=== PATIENT | male | born 1930 | race Caucasian/White ===

== ENCOUNTER 2019-10-10 09:29 | Inpatient (IN) ==
[2019-10-10] MEDS ORDERED: NS 1,000 ML IV ONE (10:39)
[2019-10-10] MEDS ORDERED: ASPIRIN PO ONE (10:39)
--- NOTE | 2019-10-10 10:49 | EKG Report ---
Test Performed on : 10/10/2019 09:38:48 AM Test Reason : Stroke like symptoms Blood Pressure : / mmHG Vent. Rate : 065 BPM Atrial Rate : 065 BPM P-R Int : 168 ms QRS Dur : 136 ms QT Int : 430 ms P-R-T Axes : 040 -03 048 degrees QTc Int : 447 ms Normal sinus rhythm. Right bundle branch block Abnormal ECG When compared with ECG of 23-JUL-2014 14:44, No significant change was found Unconfirmed Result
[2019-10-10 11:07] LABS: BASO# 0.04 X1000 (0.0-0.2); BASO% 0.6 % (0.0-0.8); EOS# 0.26 X1000 (0.0-0.7); EOS% 3.8 % (0.0-10.0); HEMATOCRIT 39.8 % (42.0-52.0); HEMOGLOBIN 13.3 g/dL (14.0-18.0); LYMPH# 1.71 X1000 (1.2-3.4); LYMPH% 25.1 % (20.5-51.1); MCH 30.2 PG (27-31); MCHC 33.4 g/dL (33-37); MCV 90.5 FL (81-99); MONO% 14.7 % (1.7-9.3); MPV 9.6 FL (7.4-10.4); NEUT# 3.79 X1000 (1.4-6.5); NEUT% 55.8 % (42.2-75.2); PLT 206 X1000 (130-400); RDW 12.5 % (11.5-14.5)
[2019-10-10 11:14] LABS: INR 0.99; PROTIME 13.2 Seconds (11.0-16.0); PTT 27.1 Seconds (22.3-41.8)
[2019-10-10 11:21] LABS: URINE SOURCE CLEAN CATCH
[2019-10-10 11:27] LABS: BILIRUBIN URINE NEGATIVE (NEGATIVE); BLOOD URINE NEGATIVE (NEGATIVE); COLOR YELLOW; GLUCOSE URINE NEGATIVE (NEGATIVE); KETONE URINE NEGATIVE (NEGATIVE); LEUKOCYTES URINE NEGATIVE (NEGATIVE); NITRITE URINE NEGATIVE (NEGATIVE); PROTEIN URINE NEGATIVE (NEGATIVE); SP GRAVITY URINE 1.017; TURBIDITY URINE CLEAR (CLEAR); UROBILINOGEN URINE NORMAL (NORMAL)
[2019-10-10 11:33] LABS: AGAP 14; ALB/GLOB RATIO 1.5; ALBUMIN 3.9 g/dL (3.5-5.0); ALKALINE PHOSPHATASE 78 U/L (32-122); BUN 20 mg/dL (8-22); CALCIUM 9.3 mg/dL (8.8-10.2); CHLORIDE 97 mmol/L (98-107); COSMO 269; CREATININE 0.9 mg/dL (0.7-1.2); ESTIMATED GFR > 60; GLUCOSE 92 mg/dL (70-104); GOT 21 U/L (10-34); GPT 20 U/L (10-44); POTASSIUM 4.3 mmol/L (3.5-5.1); SODIUM 133 mmol/L (136-145); TCO2 22 mmol/L (25-35); TOTAL BILIRUBIN 0.51 mg/dL (0.20-1.00); TOTAL PROTEIN 6.5 g/dL (6.3-8.3)
--- NOTE | 2019-10-10 11:42 | Diag Imaging Result Doc PS360 ---
EXAM: CT HEAD W/O CONTRAST 10/10/2019 HISTORY: stroke like symptoms TECHNIQUE: This exam was performed using automated exposure control, adjustment of mA or kV according to patient size, and/or use of iterative reconstruction technique. COMMENT: There are calcifications in the vertebral and internal carotid arteries. There are patchy lucencies in the white matter of both hemispheres particularly in the areas of the atria of the lateral ventricles. There are also lacunar lucencies in the external capsule on the right. There is mild to moderate generalized cerebral atrophy. These findings were all present at the time the previous study of 09/01/2018. IMPRESSION: Extensive chronic ischemic changes and cerebral atrophy. In view of the chronic changes, further evaluation with MRI may be desirable. Electronically signed by Ric Martinez 10/10/2019 11:39 AM
[2019-10-10 11:52] LABS: UR AMPHETAMINES QUAL NONE DETECTED (NONE DETECT); UR BARBITUATES QUAL NONE DETECTED (NONE DETECT); UR BENZODIAZEPIN QUAL NONE DETECTED (NONE DETECT); UR CANNABINOIDS QUAL NONE DETECTED (NONE DETECT); UR COCAINE QUAL NONE DETECTED (NONE DETECT); UR METHADONE QUAL NONE DETECTED (NONE DETECT); UR OPIATES QUAL NONE DETECTED (NONE DETECT); UR OXYCODONE QUAL NONE DETECTED (NONE DETECT); UR PCP QUAL NONE DETECTED (NONE DETECT)
[2019-10-10 11:55] LABS: UR EPITHELIAL CELLS <10 /HPF (<10); URINE BACTERIA NEGATIVE /HPF; URINE RBC <10 /HPF (<10); URINE WBC <10 /HPF (<10)
--- NOTE | 2019-10-10 11:57 | Diag Imaging Result Doc PS360 ---
EXAM: CHEST-PORTABLE 10/10/2019 HISTORY: stroke like symptoms TECHNIQUE: AP portable at 1100 COMMENT: There is atelectasis in the left lower lobe which is worse in appearance than on 12/24/2014. IMPRESSION: Left lower lobe atelectasis. Electronically signed by Ric Martinez 10/10/2019 11:55 AM
[2019-10-10 12:04] LABS: URINE CRYSTALS NONE SEEN
[2019-10-10 12:30] LABS: SED RATE 13 mm/hr (0-15)
--- NOTE | 2019-10-10 13:14 | PROVIDER DOCUMENTATION ---
This chart was entered by Tracy Harrington Scribe, acting as scribe for Hang Clemente MD. HPI-Neurological Disorder - General Chief Complaint: Numbness Stated Complaint: SOB,LT ARM,HAND NUMBNESS Time Seen by Provider: 10/10/19 10:29 Source: patient Allergies/Adverse Reactions: Patient Allergies Allergy/AdvReac Type Severity Reaction Status Date / Time green beans Allergy SWELLING Uncoded 10/10/19 10:16 Home Medications: Home Medication List Medication Instructions Recorded Confirmed Last Taken Type Rosuvastatin Calcium [Crestor] 5 mg PO DIRECTED 11/09/13 10/10/19 09/18/15 21:00 History Aspirin EC 81 mg PO DAILY 07/24/14 10/10/19 10/10/19 History Chlorthalidone 1 tab PO DAILY 10/10/19 10/10/19 10/10/19 History Losartan [Cozaar] 100 mg PO DAILY 10/10/19 10/10/19 10/10/19 History - History of Present Illness-Neuro Nature of Presenting Problem: Patient is a 89 year old male who presents with weakness to left arm and hand. States weakness started this morning at 0730. Reports weakness has improved. History of TIA Severity: reports: mild Onset/Duration: reports: this morning (0730) Timing: reports: improving Context: reports: other (weakness) Character of Altered Mental Status: reports: N/A Character of Deficits: reports: new weakness New weakness or altered sensation location:: reports: LUE Cognitive Baseline: alert, oriented x3 Gait Baseline: walks without assistance Associated Symptoms: reports: denies symptoms Similar Symptoms Previously?: No Recently seen or treated by another doctor?: No Review of Systems - Adult - REVIEW OF SYSTEMS - ADULT Constitutional: reports: no symptoms reported Eyes: reports: no symptoms reported Ears, Nose, Mouth & Throat: reports: no symptoms reported Cardiovascular: reports: no symptoms reported Respiratory: reports: no symptoms reported Gastrointestinal: reports: no symptoms reported Genitourinary: reports: no symptoms reported Musculoskeletal: reports: see HPI. denies: back pain, neck pain Integumentary: reports: no symptoms reported Neurological: reports: see HPI, other (LUE weakness). denies: numbness, paresthesia Psychiatric: reports: no symptoms reported Endocrine: reports: no symptoms reported Hematologic/Lymphatic: reports: no symptoms reported Allergic/Immunologic: reports: no symptoms reported All Other Systems: Reviewed and Negative Past History - Adult - PAST MEDICAL HISTORY-ADULT Review of Records: reports: Old Records Reviewed, Nursing Assessment Review, Medications Reviewed, Social history reviewed & non-contributory. Major Childhood Illnesses: reports: denies history Cardiovascular: reports: CAD, HTN, hyperlipidemia Respiratory: reports: denies history Gastrointestinal: reports: denies history Obstetrical/Gynecological: reports: denies history Genitourinary: reports: denies history Musculoskeletal: reports: denies history Neurological: reports: TIA Endocrine/Immune: reports: denies history Other Conditions: reports: other cancer (skin) - PRIOR SURGERIES/PROCEDURES Surgical/Procedure History: reports: hernia repair, joint replacement - IMMUNIZATION STATUS Childhood Immunizations: See Nurse Assessment Flu Vaccine: See Nurse Assessment - FAMILY HISTORY Family History: reviewed, not pertinent - SOCIAL HISTORY Smoking: cigarettes (former) Substance Use: denies Living Situation: family Physical Exam- Neurological - Physical Exam-Neuro Initial Vital Signs Reviewed: Yes General Appearance: alert, no apparent distress. negative: lethargic Eye Exam: bilateral eye: normal inspection HENMT: normocephalic/atraumatic, moist mucous membranes. negative: angioedema Head Injury: no evidence of injury. negative: ecchymosis, lacerations Respiratory: chest non-tender, lungs clear, normal breath sounds. negative: crackles, stridor Cardiovascular: normal peripheral pulses, regular rate, rhythm. negative: tachycardia Abdominal Exam: normal bowel sounds, non tender, soft. negative: rigid 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 range of motion, non-tender, other (external rotation to right foot (chronic). 2/4 reflexes to upper extremities. 1/4 reflexes to lower extremities.). 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 negative: abnormal speech, facial droop Motor/Sensory: no pronator drift, weak motor strength LUE. negative: sensory deficit Neurologic: delicate fabrics presser II-XII nml as tested, motor weakness (LUE). negative: aphasia, facial droop Integumentary: normal color, normal turgor, warm/dry. negative: diaphoresis, pallor Psych/Mental Status: normal mood/affect, oriented x 3. negative: anxious Progress - PLAN OF CARE/RESULTS Progress/Plan/Lab Results: Vital Signs - 8 hr 10/10/19 09:34 Temperature 97.8 F Pulse Rate 63 Respiratory Rate 22 Blood Pressure 154/80 O2 Sat by Pulse Oximetry 98 Laboratory Results - last 24 hr 10/10/19 10/10/19 10/10/19 10:53 10:53 10:53 WBC 6.80 RBC 4.40 L Hgb 13.3 L Hct 39.8 L MCV 90.5 MCH 30.2 MCHC 33.4 RDW Std Deviation 12.5 Plt Count 206 MPV 9.6 Immature Gran % (Auto) 0.0 Neut % (Auto) 55.8 Lymph % (Auto) 25.1 [place] % (Auto) 14.7 H Eos % (Auto) 3.8 Baso % (Auto) 0.6 Immature Gran # (Auto) 0.00 Neut # (Auto) 3.79 Lymph # (Auto) 1.71 [place] # (Auto) 1.00 H Eos # (Auto) 0.26 Baso # (Auto) 0.04 ESR 13 PT 13.2 INR 0.99 PTT (Actin FS) 27.1 Sodium 133 L Potassium 4.3 Chloride 97 L Carbon Dioxide 22 L Anion Gap 14 BUN 20 Creatinine 0.9 Estimated GFR/1.73 m2 > 60 BUN/Creatinine Ratio 22 Glucose 92 Calculated Osmolality 269 Calcium 9.3 Total Bilirubin 0.51 AST 21 ALT 20 Alkaline Phosphatase 78 Troponin T Qvx-V-Pfmrcmpucwe Pept Total Protein 6.5 Albumin 3.9 Globulin 2.6 Albumin/Globulin Ratio 1.5 Urine Source Urine Color Urine Turbidity Urine pH Ur Specific Richardson Urine Protein Ur Glucose (Stick) Ur Ketones (Stick) Urine Blood Urine Nitrite Urine Bilirubin Urobilinogen Dipstick Urine Leukocytes Urine WBC (Auto) Urine RBC (Auto) U Epithel Cells (Auto) Urine Bacteria (Auto) Urine Crystals Small Round Cells Urine Casts Urine Yeast-like Cells Urine Opiates Screen Ur Oxycodone Screen Ur Methadone, Qual Ur Barbiturates Screen Ur Phencyclidine Scrn Ur Amphetamines Screen U Benzodiazepines Scrn Urine Cocaine Screen U Cannabinoids Screen 10/10/19 10/10/19 10/10/19 10:53 10:53 11:00 WBC RBC Hgb Hct MCV MCH MCHC RDW Std Deviation Plt Count MPV Immature Gran % (Auto) Neut % (Auto) Lymph % (Auto) [place] % (Auto) Eos % (Auto) Baso % (Auto) Immature Gran # (Auto) Neut # (Auto) Lymph # (Auto) [place] # (Auto) Eos # (Auto) Baso # (Auto) ESR PT INR PTT (Actin FS) Sodium Potassium Chloride Carbon Dioxide Anion Gap BUN Creatinine Estimated GFR/1.73 m2 BUN/Creatinine Ratio Glucose Calculated Osmolality Calcium Total Bilirubin AST ALT Alkaline Phosphatase Troponin T < 0.010 Sxc-C-Vioncwvvvvv Pept 167 Total Protein Albumin Globulin Albumin/Globulin Ratio Urine Source CLEAN CATCH Urine Color YELLOW Urine Turbidity CLEAR Urine pH 7.0 Ur Specific Richardson 1.017 Urine Protein NEGATIVE Ur Glucose (Stick) NEGATIVE Ur Ketones (Stick) NEGATIVE Urine Blood NEGATIVE Urine Nitrite NEGATIVE Urine Bilirubin NEGATIVE Urobilinogen Dipstick NORMAL Urine Leukocytes NEGATIVE Urine WBC (Auto) <10 Urine RBC (Auto) <10 U Epithel Cells (Auto) <10 Urine Bacteria (Auto) NEGATIVE Urine Crystals NONE SEEN Small Round Cells Not Reportable Urine Casts Not Reportable Urine Yeast-like Cells Not Reportable Urine Opiates Screen Ur Oxycodone Screen Ur Methadone, Qual Ur Barbiturates Screen Ur Phencyclidine Scrn Ur Amphetamines Screen U Benzodiazepines Scrn Urine Cocaine Screen U Cannabinoids Screen 10/10/19 11:00 WBC RBC Hgb Hct MCV MCH MCHC RDW Std Deviation Plt Count MPV Immature Gran % (Auto) Neut % (Auto) Lymph % (Auto) [place] % (Auto) Eos % (Auto) Baso % (Auto) Immature Gran # (Auto) Neut # (Auto) Lymph # (Auto) [place] # (Auto) Eos # (Auto) Baso # (Auto) ESR PT INR PTT (Actin FS) Sodium Potassium Chloride Carbon Dioxide Anion Gap BUN Creatinine Estimated GFR/1.73 m2 BUN/Creatinine Ratio Glucose Calculated Osmolality Calcium Total Bilirubin AST ALT Alkaline Phosphatase Troponin T Vau-J-Tarplssztpr Pept Total Protein Albumin Globulin Albumin/Globulin Ratio Urine Source Urine Color Urine Turbidity Urine pH Ur Specific Richardson Urine Protein Ur Glucose (Stick) Ur Ketones (Stick) Urine Blood Urine Nitrite Urine Bilirubin Urobilinogen Dipstick Urine Leukocytes Urine WBC (Auto) Urine RBC (Auto) U Epithel Cells (Auto) Urine Bacteria (Auto) Urine Crystals Small Round Cells Urine Casts Urine Yeast-like Cells Urine Opiates Screen NONE DETECTED Ur Oxycodone Screen NONE DETECTED Ur Methadone, Qual NONE DETECTED Ur Barbiturates Screen NONE DETECTED Ur Phencyclidine Scrn NONE DETECTED Ur Amphetamines Screen NONE DETECTED U Benzodiazepines Scrn NONE DETECTED Urine Cocaine Screen NONE DETECTED U Cannabinoids Screen NONE DETECTED Orders Category Date Time Status Cardiac Monitoring DIRECTED Care 10/10/19 10:38 Active Finger Stick Blood Sugar (ED) DIRECTED Care 10/10/19 10:38 Active Oxygen Therapy- ED Nursing DIRECTED Care 10/10/19 10:38 Active Saline Loc NOW Care 10/10/19 10:38 Active CHEST-PORTABLE [RAD] Stat Exams 10/10/19 10:[address] HEAD W/O CONTRAST [CT] Stat Exams 10/10/19 10:38 Completed MRI BRAIN W/O CONTRAST [MRI] Stat Exams 10/10/19 13:05 Ordered CBC WITH ELECTRONIC DIFF [HEME] Stat Lab 10/10/19 10:53 Completed COLLAGEN/EPI PLT AGG [SPCOAG] Stat Lab 10/10/19 13:04 Ordered COMPREHENSIVE METABOLIC PANEL [CHEM] Stat Lab 10/10/19 10:53 Completed PRO B-NATRIURETIC PEPTIDE Stat Lab 10/10/19 10:53 Completed PROTIME WITH INR [COAG] Stat Lab 10/10/19 10:53 Completed PTT [COAG] Stat Lab 10/10/19 10:53 Completed SED RATE [HEME] Stat Lab 10/10/19 10:53 Completed TROPONIN T Stat Lab 10/10/19 10:53 Completed URINALYSIS W/POSS RFLX CULT [URINALYSIS] Stat Lab 10/10/19 11:00 Completed URINE DRUG SCREEN Stat Lab 10/10/19 11:00 Completed URINE MANUAL MICROSCOPIC [URINALYSIS] Stat Lab 10/10/19 11:00 Completed 0.9% Sodium Chloride Inj [Ns] 1,000 ml Med 10/10/19 10:39 Discontinued IV 999 mls/hr Aspirin Med 10/10/19 10:39 Discontinued 243 mg PO NOW ONE Carotid Ultrasound Stat Ther 10/10/19 13:05 Ordered EKG [EKG] Stat Ther 10/10/19 10:38 Draft Result Diagrams: 10/10/19 10:53 10/10/19 10:53 - EKG 1 Time of EKG reading by physician:: 10:00 EKG Read and Signed by:: Hang Clemente EKG Interpretation (*Must complete 3 of following elements*): Abnormal Rate: 65 Rhythm: normal sinus rhythm Amasa: normal QRS: RBB MS Interval: normal Prior EKG Comparison: unchanged from prior Comments: NAD - XRAY 1 XRAY Study: Chest Impression: See EMR Report (EXAM: CHEST-PORTABLE 10/10/2019 HISTORY: stroke like symptoms TECHNIQUE: AP portable at 1100 COMMENT: There is atelectasis in the left lower lobe which is worse in appearance than on 12/24/2014. IMPRESSION: Left lower lobe atelectasis. Electronically signed by Ric bennett 10/10/2019 11:55 AM 10/10/19 1155 Interpreting Physician: Ric Martinez MD Dictated Date/Time: 10/10/19 1154 cc: Hang Clemente MD; Curly Goodson MD) - CT/MRI 1 CT Study: Head Impression: See EMR Report ( EXAM: CT HEAD W/O CONTRAST 10/10/2019 HISTORY: stroke like symptoms TECHNIQUE: This exam was performed using automated exposure control, adjustment of mA or kV according to patient size, and/or use of iterative reconstruction technique. COMMENT: There are calcifications in the vertebral and internal carotid arteries. There are patchy lucencies in the white matter of both hemispheres particularly in the areas of the atria of the lateral ventricles. There are also lacunar lucencies in the external capsule on the right. There is mild to moderate generalized cerebral atrophy. These findings were all present at the time the previous study of 09/01/2018. IMPRESSION: Extensive chronic ischemic changes and cerebral atrophy. In view of the chronic changes, further evaluation with MRI may be desirable. Electronically signed by Ric Martinez 10/10/2019 11:39 AM 10/10/19 1139 Interpreting Physician: Ric Martinez MD Dictated Date/Time: 10/10/19 1138 cc: Hang Clemente MD; Curly oGodson MD) - CONSULTS/PCP/HOSPITALIST Notification #1 *Consult/PCP/Hospitalist*: Dr. Goodson Time Discussed: 13:03 Reason/Comments: Dr. Clemente consulted with Dr. Goodson about patient. Consult Disposition: Admit Departure - Departure Date of Disposition Decision: 10/10/19 Time of Disposition Decision: 13:13 DIAGNOSIS: Acute CVA (cerebrovascular accident), Muscle left arm weakness Disposition: ADMITTED INPATIENT 09 Certified Medical Emergency: Emergent Condition: Stable Referrals and Follow-Ups: Curly Goodson MD [Primary Care Provider] - - Critical Care Note This patient required my direct & personal management of CC.: No Attestation - Physician/ SARMAD Attestation Patient care was provided by Advanced Practice Provider:: No The physician spent face to face time with patient:: Yes Advanced Practice Provider documentation review:: Supervising physician onsite and consulted in the evaluation and care of this patient. The physician did have a face to face encounter with the patient. - NIH Stroke Scale Level of Consciousness: 0-Alert LOC Questions (ask month and age): 0-Answers Both Correctly LOC Commands (ask to open & close eyes;make a fist, let go): 0-Obeys Both Correctly Best Gaze (horizontal eye movement): 0-Normal Visual (use finger movement, counting or visual threat): 0-No Visual Loss Facial Palsy (show teeth or raise eyebrows & close eyes tght: 0-Symmetrical Movement Motor Function-left arm: 0-Normal Motor Function-right arm: 0-Normal Motor Function-left le-Normal Motor Function-right le-Normal Limb Ataxia(hfofwb-aall-drpavi, or heel to juarez): 0-No Ataxia Sensory(pin prick to face,arms,trunk,legs-compare side/side): 0-No Ataxia Best Language(name item/read sentence.Ex-Down to Earth): 0-No Aphasia Dysarthria(Pt read words or say words Ex.Mama,Tip-Top,Thanks: 0-Normal Articulat ion Extinction and Inattention: 0-Normal NIH Total Score: 0 Stroke tPA Guidelines - Inclusion Criteria for IV tPA 18 years old or older: Yes Ischemic stroke with measurable deficit: Yes Onset <3 hours ago *OR* 3-4.5 hours ago: No - Exclusion Criteria for IV tPA Evidence of intracranial hemorrhage on CT: No Presentation suggest SAH: No CT reveals defined area of hypodensity: No Evidence of AVM, neoplasm, aneurysm: No Seizure at stroke onset: No Active internal bleeding or acute trauma: No Platelet Count Less Than 100,000: No Heparin Within Last 48 HRS (PTT >Lab normal limits): No INR > 1.7 (warfarin use): No Use IIB/IIIA inhibitors within 24 hours: No Serious Head Trauma Within Last 3 Months: No Arterial Puncture Within Last 7 Days: No Lumbar Puncture Within Last 7 Days: No Repeated systolic Blood Pressure >185 or Diastolic >110: No - Additional Exclusion Criteria for IV tPA Currently on Coumadin: No Patient older than 80: Yes Prior stroke and diabetes: No Baseline NIHSS score > 25: No - Relative Contraindications to IV tPA CT reveals extensive area of infarct (>1/3 MCA territory): No Minor or rapidly improving stroke symptoms: Yes Major Surgery or Serious Trauma In Previous 14 Days: No AMI within 3 months: No Gastrointestinal or Urinary Tract hemorrhage in Past 21 Days: No - Consultation tPA risks/benefits explained to:: family, patient Candidate for:: NOT A CANDIDATE This chart was documented by the indicated scribe, (Tracy Harrington Scribe) and accurately reflects the services I performed and decisions made by Bryn lee Kent A., MD, as attested by the provider's signature.
[2019-10-10] MEDS ORDERED: ZOFRAN PO PRN (13:15)
[2019-10-10] MEDS ORDERED: TYLENOL PO PRN (13:15)
--- NOTE | 2019-10-10 14:00 | Diag Imaging Result Doc PS360 ---
EXAM: MRI BRAIN W/O CONTRAST 10/10/2019 HISTORY: left arm weakness TECHNIQUE: T1 sagittal and axial, axial T2, FLAIR, DWI and coronal gradient echo. COMMENT: There is mild generalized cerebral atrophy. There are prominent perivascular spaces and patchy areas of increased T2-weighted signal intensity in the subcortical and periventricular white matter of both hemispheres particularly adjacent to the atria of the lateral ventricles. There is no evidence of bleed or abnormal extra-axial fluid collection. There is some restricted diffusion present in the posterior right parietal cortex and subcortical white matter. There is also a small punctate focus in the cortex of the posterior left frontal lobe. Compared to the previous study of 07/24/2014, there has been no significant change in the overall appearance of the brain. The areas of restricted diffusion described above were not present on the previous study. IMPRESSION: Chronic ischemic changes with additional acute or subacute infarctions in both hemispheres primarily in the right parietal lobe. The presence of abnormalities on both sides would suggest the possibility of emboli from the aorta or left heart. Electronically signed by Ric Martinez 10/10/2019 1:57 PM
[2019-10-10 16:48] LABS: COLLAGEN/EPI PLT AGG 177 Seconds (87-172)
[2019-10-10 16:57] LABS: COLLAGEN/ADP PLT AGG 91 Seconds (65-124)
[2019-10-10] MEDS ORDERED: PLAVIX PO SCH (18:00)
--- NOTE | 2019-10-10 19:24 | HISTORY AND PHYSICAL ---
CHIEF COMPLAINT: Left hand clumsiness with possible numbness. HISTORY OF PRESENT ILLNESS: Mr. Leal is an 89-year-old gentleman with a history of previous cerebral infarcts. He was taking a shower today, and when he was getting dressed, he noticed his left hand was very uncoordinated and felt a little numb. As he had had similar symptoms with his stroke in 2013, he came quickly to the emergency room. He has been taking an 81 mg aspirin daily for over 5 years. He also has a history of previous supposed aspirin resistance that was felt to be due to not dissolving the enteric coating on the aspirin. Since arrival in the emergency room, his clumsiness has improved but not totally resolved. His is at the bedside, and they agree that he has not had any difficulty speaking. He has not had any increased balance problems. In April 2018 he was visiting in [facility], and while walking across the street tripped and fell, injuring his right ankle and his head. He was briefly hospitalized with some cerebral bleeding, although he never required any neurosurgery, and eventually it resolved. He continues to have right ankle and foot ligamentous disruption and walks with a quad cane to assist his balance. He is unable to continue his exercise walking but manages to walk around the house fairly well. PAST MEDICAL HISTORY: Has a history of coronary disease diagnosed on a stress test approximately 30 years ago. He now sees Dr. Glenn Hernandez and is on Crestor 2.5 mg daily. His last LDL level was 83. He has a history of BPH, followed by Dr. No. He has obstructive sleep apnea with some degree of central sleep apnea and is followed by Dr. Roque. He uses CPAP nightly with minimal if any excessive daytime somnolence. FAMILY HISTORY: Noncontributory. SOCIAL HISTORY: He is to his second after his first 3 or 4 years ago. He consumes occasional social alcohol. He has never used tobacco. He has had previous Pneumovax and Prevnar vaccines and also a flu vaccine this year. HOME MEDICATIONS: Crestor 5 mg one-half tablet daily, aspirin 81 mg daily, chlorthalidone 25 mg daily for hypertension, losartan 100 mg daily. REVIEW OF SYSTEMS: GENERAL: No headache, fever, chills, night sweats or weight loss. HEENT: His vision and hearing are adequate without recent changes. No difficulty swallowing. RESPIRATORY: No cough, shortness of breath or sputum production . CARDIOVASCULAR: No history of angina. No history of congestive heart failure or valvular heart disease. His last echocardiogram was in December of this year and was essentially unremarkable with mild left atrial enlargement. He denies any palpitations, tachycardia, syncope or edema. GASTROINTESTINAL: His appetite has been good. He denies any nausea, vomiting, diarrhea or constipation. No history of liver disease. : Mild hesitancy with nocturia once or twice nightly. NEUROLOGIC: No history of seizures. See above for previous stroke. PSYCHOLOGICAL: No history of mood or memory disorders. MUSCULOSKELETAL: His right foot has torn ligaments and is progressively deformed, but he is able to walk surprisingly well. PHYSICAL EXAMINATION: VITAL SIGNS: Unremarkable. See nurse's notes. GENERAL APPEARANCE: Alert, pleasant, talkative, elderly gentleman in no acute distress. HEENT: Pupils equal, round, and reactive to light. Extraocular movements are intact. There are very small pterygiums present on the medial surfaces of the corneas of both eyes. The oropharynx is benign. NECK: Supple with no adenopathy, JVD, thyromegaly or bruits. LUNGS: Clear to auscultation and percussion. CARDIAC: Regular rate and rhythm. Normal S1 and S2. No S3, S4 or murmurs. ABDOMEN: Soft and nontender with active bowel sounds. There is no guarding or rebound tenderness. EXTREMITIES: Muscle mass is symmetric. There is no edema. The right foot and ankle are asymmetric, and there is a bony prominence in the instep which is abnormal. LABORATORY DATA: Unremarkable. DIAGNOSTIC DATA: CT of the brain shows no acute changes but numerous chronic ischemic sequelae, unchanged from previous scans a year ago. ASSESSMENT: 1. New onset of left hand clumsiness with apparently recurrent cerebral ischemia or infarction. 2. Essential hypertension, well controlled. 3. History of atherosclerotic cardiovascular disease without angina pectoris, stable. 4. Obstructive sleep apnea, stable. 5. Hypercholesterolemia, treated. 6. 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 PLAN: Will admit for observation and telemetry monitoring, and obtain an MRI of the brain and carotid Doppler exam tomorrow. cc: Curly Goodson MD MTDD
[2019-10-11] MEDS: HYGROTON PO SCH (10:02)
[2019-10-11] MEDS: ASPIRIN EC PO SCH (10:02)
[2019-10-11] MEDS: COZAAR PO SCH (10:02)
--- NOTE | 2019-10-11 12:02 | Diag Imaging Result Doc PS360 ---
EXAM: MRI BRAIN W/O CONTRAST INDICATION: stroke: left hand weakness COMPARISON: 10/10/2019 FINDINGS: There is an aging late subacute lacunar infarct in the right parietal periventricular white matter and an even smaller more recent lacunar infarct in the left frontal lobe subcortical white matter. These are unchanged since yesterday's study. No new infarcts are identified as compared to yesterday's study. 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 Diffuse brain atrophy is again noted. There is no discrete intracranial mass, mass effect, or intracranial hemorrhage. The surrounding soft tissues and bony structures are essentially unremarkable. IMPRESSION: Stable recent lacunar infarcts involving the right parietal lobe and left frontal lobe in stable extensive white matter microangiopathy. No new infarcts have developed since yesterday's study. Electronically signed by Jin Moses 10/11/2019 11:59 AM
--- NOTE | 2019-10-11 18:53 | Carotid Study ---
DATE: 10/10/2019 REQUESTING PHYSICIAN: Dr. Clemente. NUTRITIONISTS: Rocco. INDICATIONS: Left arm weakness. EQUIPMENT: [employer] Vivid E9 ultrasound system with a 9 L-D transducer. FINDINGS: Complete diagram of ultrasound images can be seen scanned in the patient's medical record. The peak systolic velocity noted on the right side is in the mid internal carotid artery is noted to be 48. The peak systolic velocity noted on the left side is noted in the distal internal carotid artery and is noted to be 57. The calculated internal common ratio on the right is 0.47, left 0.98. Both vertebral arteries were antegrade flow. There is some atherosclerosis. Velocities are low throughout the entirety of the carotid system. INTERPRETATION: By strict velocity criteria, no hemodynamically significant flow-limiting stenosis noted to bilateral carotid arteries. cc: MD Curly Foreman MD
[2019-10-12 07:46] VITALS: BP 132/64
[2019-10-12] MEDS ORDERED: CRESTOR PO SCH (09:00)
[2019-10-12] MEDS ORDERED: XYLOCAINE 2% VISCOUS ONE (09:11)
[2019-10-12] MEDS ORDERED: DIPRIVAN 1% ONE (09:25)
[2019-10-12] MEDS ORDERED: XYLOCAINE-MPF 1% 5 ML ONE (09:26)
[2019-10-12] MEDS ORDERED: NS 500 ML ONE (09:28)
[2019-10-12] MEDS ORDERED: ANESTHESIA PB SET 88 IN 5742 ONE (09:28)
--- NOTE | 2019-10-12 09:54 | CARDIOLOGY CONSULTATION ---
DATE: 10/12/2019 CONSULTATION REQUESTED BY: Dr. Goodson. REASON: Patient who presented with left arm weakness. A head CT showed extensive chronic ischemic changes and brain MRI showed stable recent lacunar infarct involving the right parietal lobe and left frontal lobe and a stable extensive white matter microangiopathy. Concern for possible cardiac embolism. HISTORY: Mr. Leal is an 89-year-old male, patient of Dr. Curly Goodson for many years and also Glenn Hernandez recently. The patient developed sudden onset of weakness of his left hand and numbness of the left arm when he was taking a shower in the morning of October 10. The patient notified Dr. Goodson and he was advised to come to the emergency room. In the ER, they did blood tests, sodium was 133, potassium 4.3. His PT, PTT were normal. His BUN and creatinine were normal. ProBNP was normal. Troponin was normal. A 12 lead EKG shows sinus rhythm with a right bundle branch block. He did not report any chest pain or dyspnea or any change in cardiac status prior or after the incident. Over the course of the ensuing 48 hours, the strength and ability to operate his left hand and arm has improved. They have done a carotid ultrasound on the day of admission reported by Dr. Colon indicating that there is no flow-limiting stenosis in the carotid circulation. The patient at this time is feeling alright. He is not having any discomfort. His son and his are in the room with him. PAST MEDICAL HISTORY: Positive for moderate coronary artery disease. For many years the patient has been followed by Dr. Gumaro Pillai at [facility]. They diagnosed a moderate coronary artery stenosis of the right coronary artery. They elected to treat him conservatively. He has not complained of any chest pain. Stress test has shown a reversible defect of small size involving the apex of the inferior wall of the left ventricle back in 2013. He is being treated also for hypertension and for central sleep apnea syndrome. SURGICAL HISTORY: Includes prostate surgery, knee replacement, eye surgery, hernia repair, wrist surgery and back surgery. SOCIAL HISTORY: He is . He has grown-up children. He retired. Not a smoker. FAMILY HISTORY: non contributory. HOME MEDICATIONS: 1. Aspirin 81 daily. 2. Chlorthalidone 25 daily. 3. Losartan 100 mg daily. 4. Rosuvastatin 5 mg every other day. ALLERGIES: To green beans. REVIEW OF SYSTEMS: He is limited to ambulate because of orthopedic deformity of the right foot. He fell apparently a year and a half ago and bumped his head and had a limited intracranial bleed. This has not recurred. No other major issues at this time. PHYSICAL EXAMINATION: Vital signs: Blood pressure is 132/64, pulse 73, respirations 18, temperature 97.9 degrees. General: He is awake, alert, in no distress. HEENT: Normal. Throat has no abnormalities. No cervical bruits. Chest: Clear to auscultation and percussion. Heart: Sounds are regular rhythmic. I do not hear a gallop or murmur. Abdomen: Nontender. Extremities: Showed deformity in the right foot with preserved pulses. Neurological: He has no obvious deficit at this time. Moves 4 extremities. IMPRESSION: 1. Patient who presented to the hospital with what appears to be a transient ischemic attack. However, his brain MRI suggests 2 separate lacunar strokes, 1 in the right parietal lobe, the other 1 on the left frontal lobe. 2. Patient with hypertension. 3. Hyperlipidemia. 4. History of acid reflux. 5. Question of possible embolic stroke coming from the heart. 6. History of stable coronary artery disease, moderate stenosis right coronary artery. RECOMMENDATION: At this time, we have discussed with the patient, the , the son and with Dr. Goodson the possible options in terms of diagnosis and treatment. It seems like a transesophageal echocardiogram would be probably the best thing to do at this time to get a straight diagnosis. Benefits, risks, complications discussed. He is in agreement. We will proceed with scheduling and hopefully get it done today. cc: MD Curly Stevens MD [facility]
--- NOTE | 2019-10-12 10:14 | Transesophageal Echocardiogram ---
DATE: 10/12/2019 PHYSICIAN: Jeremiah Zuleta MD. INDICATIONS: Suspected intracardiac thrombus. Stroke. PROCEDURE: Transesophageal echocardiography. DESCRIPTION: After consent with the patient in his room in the presence of his , son, and Dr. Goodson, the patient was brought to the cardiac laborer landscape in a fasting state. He received intravenous propofol under the Anesthesia services with Dr. Anne. The throat was anesthetized with Hurricaine. Esophagus was intubated without difficulty. Multiple views of the heart were obtained. SUMMARY OF MAIN FINDINGS: 1. The left atrium and the appendage are normal. There is no evidence of thrombus. 2. Flow velocities within the left atrial appendage are within normal range. 3. The interatrial septum is highly mobile however there is no indication of shunt neither from [id number] nor from [id number] after injection of agitated saline. The interatrial septum shows some lipomatosis. 4. The tricuspid valve looks normal. 5. The pulmonic valve looks normal. 6. The right ventricle appears to be normal. The left ventricle also appears to be normal. 7. Mitral annulus is unremarkable. 8. The aortic valve shows sclerosis of the right coronary cusp but there is no stenosis. There is mild degree of aortic regurgitation. 9. The mitral valve shows mild degree of regurgitation. 10.There is no pericardial effusion. 11.The descending thoracic aorta shows mild plaque without any ulceration or debris. The patient tolerated the procedure well. SUMMARY: This transesophageal echocardiogram shows no indication of any intracardiac thrombus. Clinical correlation is recommended. cc: MD Curly Stevens MD [facility]
[2019-10-12] MEDS: HYGROTON PO SCH (14:05)
[2019-10-12] MEDS: COZAAR PO SCH (14:07)
[2019-10-12] MEDS: ASPIRIN EC PO SCH (14:07)
--- NOTE | 2019-10-12 14:32 | ECHO REPORT ---
ORDER DATE: 10/12/2019 INDICATION: Evaluate for cardiac thrombus. FINDINGS: 1. Right atrium appears normal in size. 2. Mild tricuspid regurgitation. RV systolic pressure of 29. 3. Normal RV size and systolic function. 4. No significant pulmonic insufficiency. 5. Moderate to severe left atrial enlargement with dimension of 5 cm. Volume index of 43. 6. No mitral prolapse. Mild mitral regurgitation. No mitral stenosis. 7. Normal LV size, end-diastolic dimension of 4.8 cm. There is normal wall thicknesses with a posterior and interventricular septal wall thickness of 0.8 and 0.9 cm respectively. Normal LV systolic function. Estimated EF is 65% to 70% with normal wall motion. Optison contrast was used on this study. There is no evidence of intracardiac thrombus. 8. Aortic valve is somewhat sclerotic but opens well. It is not stenotic. There is mild insufficiency. The valve is trileaflet. 9. The aorta appears normal in visualized segments. 10. No pericardial effusion identified. cc: MD Jeremiah Salamanca MD Russell T. Barr, MD
--- NOTE | 2019-10-12 15:52 | DISCHARGE SUMMARY ---
ADMISSION DATE: 10/10/2019 DISCHARGE DATE: 10/12/2019 FINAL DIAGNOSES: 1. Acute right parietal cerebral infarct with left hand clumsiness. 2. History of hypertension. 3. History of coronary artery disease. 4. History of benign prostatic hypertrophy. 5. History of obstructive sleep apnea. PRESENT ILLNESS: Mr. Leal is an 89-year old gentleman with a history of previous cerebral infarcts. On the day of admission while taking a shower he noticed his left hand was quite uncoordinated and felt slightly numb. He presented promptly to the Emergency Room. He takes a daily aspirin. In the Emergency Room within the first hour his clumsiness nearly resolved and totally resolved within 8 to 12 hours. PHYSICAL EXAMINATION: General: Physical examination revealed an alert, pleasant, elderly gentleman with unremarkable vital signs in no acute distress. HEENT: Exam was unremarkable. Neck: Supple with no bruits. Lungs: Clear. Cardiac: Regular rate and rhythm with normal S1, S2. No S3 or murmurs. Abdomen: Soft and nontender. DIAGNOSTIC DATA: CBC and chemistry profile were unremarkable. CT of the brain showed no acute changes but numerous chronic ischemic sequelae. No hemorrhage was noted. HOSPITAL COURSE: He was admitted to the medical floor for observation and telemetry monitoring. An MRI of the brain and carotid Doppler examination were performed. The MRI showed a recent right parietal stroke which corresponded to his left hand numbness. There was also a tiny left-sided lesion which appeared to be new. Because of the bilateral nature emboli were suspected and he was seen by a professional housing consultant, Dr. Zuleta. Dr. Zuleta performed a bedside echo which was fairly unremarkable and recommended a transesophageal echocardiogram to better evaluate the left atrial appendage. This was done and showed no cardiac findings that would suggest an embolic source. His aorta looked fairly unremarkable as well. Dr. Zuleta suggested a CT angiogram of the cerebral arteries as an outpatient in several weeks. The transesophageal echocardiogram was done to help the decision between continuing antiplatelet therapy or instituting full anticoagulation. Dr. Zuleta recommended dual antiplatelet therapy with aspirin and clopidogrel and continued statin and blood pressure control. He is to return to my office in 8 to 14 days for a followup. DISCHARGE MEDICATIONS: Aspirin 81 mg daily, chlorthalidone 25 mg daily, losartan 100 mg daily, rosuvastatin 5 mg one-half tablet daily, and clopidogrel 75 mg daily. cc: Curly Goodson MD
== END 2019-10-12 15:06 | disposition home or self-care (01) | DRG 66 ==
LOC: ED 09:29 → EDIPHOLD 18:26 → 3N 22:02
PROVIDERS: ADMIT Internal Medicine; ATTEND Internal Medicine

== ENCOUNTER 2019-12-11 10:39 | Inpatient (IN) ==
--- NOTE | 2019-12-11 11:02 | Diag Imaging Result Doc PS360 ---
EXAM: CT HEAD W/O CONTRAST HISTORY: stroke like s/sx TECHNIQUE: CT head without contrast. COMPARISON: 10/10/2019 FINDINGS: No parenchymal hemorrhage. No epidural or subdural hematoma. No subarachnoid hemorrhage. There is moderate atrophy with chronic microvascular ischemic changes. No mass identified on this noncontrasted exam. No hydrocephalus. No sinus opacification. IMPRESSION: 1.No hemorrhage 2.Atrophy with chronic microvascular ischemic changes This exam was performed using automated exposure control, adjustment of mA or kV according to patient size, and/or use of iterative reconstruction technique. Electronically signed by Mo Sanford 12/11/2019 11:00 AM
[2019-12-11] MEDS ORDERED: NS 1,000 ML IV PRN (11:03)
--- NOTE | 2019-12-11 11:18 | Diag Imaging Result Doc PS360 ---
EXAM: CHEST-PORTABLE HISTORY: stroke like symptoms TECHNIQUE: Single view COMPARISON: 12/05/2019 FINDINGS: The lungs are well expanded. The heart is not enlarged. The vessels are not distended. There are no infiltrates. No effusion identified. There is scarring in the lower lungs. 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 Prominent degenerative changes in the thoracic spine. IMPRESSION: Stable chest Electronically signed by Mo Sanford 12/11/2019 11:16 AM
[2019-12-11 11:51] LABS: BASO# 0.02 X1000 (0.0-0.2); BASO% 0.3 % (0.0-0.8); EOS# 0.25 X1000 (0.0-0.7); EOS% 3.2 % (0.0-10.0); HEMATOCRIT 32.6 % (42.0-52.0); HEMOGLOBIN 11.4 g/dL (14.0-18.0); LYMPH# 1.29 X1000 (1.2-3.4); LYMPH% 16.6 % (20.5-51.1); MCH 31.1 PG (27-31); MCV 88.8 FL (81-99); MONO% 12.9 % (1.7-9.3); MPV 9.3 FL (7.4-10.4); NEUT# 5.21 X1000 (1.4-6.5); PLT 252 X1000 (130-400); RBC 3.67 XMIL (4.7-6.1); RDW 12.4 % (11.5-14.5); WBC 7.77 X1000 (4.8-10.8)
[2019-12-11 12:12] LABS: URINE SOURCE CATH
--- NOTE | 2019-12-11 12:14 | EKG Report ---
Test Performed on : 12/11/2019 11:11:16 AM Test Reason : Stroke like symptoms Blood Pressure : / mmHG Vent. Rate : 070 BPM Atrial Rate : 070 BPM P-R Int : 174 ms QRS Dur : 132 ms QT Int : 426 ms P-R-T Axes : 028 002 043 degrees QTc Int : 460 ms Normal sinus rhythm. Right bundle branch block Abnormal ECG When compared with ECG of 10-OCT-2019 09:38, (Unconfirmed) No significant change was found Unconfirmed Result
[2019-12-11 12:20] LABS: AGAP 13; ALB/GLOB RATIO 1.4; ALBUMIN 3.7 g/dL (3.5-5.0); ALKALINE PHOSPHATASE 83 U/L (32-122); BUN 24 mg/dL (8-22); CALCIUM 9.2 mg/dL (8.8-10.2); CHLORIDE 94 mmol/L (98-107); COSMO 262; ESTIMATED GFR > 60; GLUCOSE 87 mg/dL (70-104); GOT 23 U/L (10-34); GPT 22 U/L (10-44); POTASSIUM 4.4 mmol/L (3.5-5.1); SODIUM 129 mmol/L (136-145); TCO2 22 mmol/L (25-35); TOTAL BILIRUBIN 0.74 mg/dL (0.20-1.00); TOTAL PROTEIN 6.4 g/dL (6.3-8.3)
[2019-12-11 12:27] LABS: BILIRUBIN URINE NEGATIVE (NEGATIVE); BLOOD URINE NEGATIVE (NEGATIVE); COLOR YELLOW; GLUCOSE URINE NEGATIVE (NEGATIVE); KETONE URINE NEGATIVE (NEGATIVE); LEUKOCYTES URINE NEGATIVE (NEGATIVE); NITRITE URINE NEGATIVE (NEGATIVE); PROTEIN URINE NEGATIVE (NEGATIVE); SP GRAVITY URINE 1.017; TURBIDITY URINE CLEAR (CLEAR); UROBILINOGEN URINE NORMAL (NORMAL)
[2019-12-11 12:33] LABS: UR EPITHELIAL CELLS <10 /HPF (<10); URINE BACTERIA NEGATIVE /HPF; URINE RBC <10 /HPF (<10); URINE WBC <10 /HPF (<10)
[2019-12-11 12:35] LABS: INR 1.06; PROTIME 13.9 Seconds (11.0-16.0)
[2019-12-11 12:36] LABS: PTT 29.9 Seconds (22.3-41.8)
[2019-12-11 12:37] LABS: UR AMPHETAMINES QUAL NONE DETECTED (NONE DETECT); UR BARBITUATES QUAL NONE DETECTED (NONE DETECT); UR BENZODIAZEPIN QUAL NONE DETECTED (NONE DETECT); UR CANNABINOIDS QUAL NONE DETECTED (NONE DETECT); UR COCAINE QUAL NONE DETECTED (NONE DETECT); UR METHADONE QUAL NONE DETECTED (NONE DETECT); UR OPIATES QUAL NONE DETECTED (NONE DETECT); UR OXYCODONE QUAL NONE DETECTED (NONE DETECT); UR PCP QUAL NONE DETECTED (NONE DETECT)
[2019-12-11 12:43] LABS: URINE CASTS NONE SEEN; URINE CRYSTALS NONE SEEN; URINE SMALL ROUND CELLS NONE SEEN; URINE YEAST NONE SEEN
--- NOTE | 2019-12-11 14:21 | Diag Imaging Result Doc PS360 ---
EXAM: CT ABD/PELVIS W/IV CONT ONLY 12/11/2019 HISTORY: fall, trauma TECHNIQUE: This exam was performed using automated exposure control, adjustment of mA or kV according to patient size, and/or use of iterative reconstruction technique. COMMENT: There are no previous studies available for comparison. There may be COPD. There is some fibrosis or atelectasis present in the posterior costophrenic sulcus of the right lower lobe. There is a calcified granuloma just above the right hemidiaphragm. There is a hiatal hernia. There are calcifications in the aorta. The mesenteric and renal arteries are patent. There are small stones layering dependently in the gallbladder. The kidneys are without evidence of hydronephrosis or mass. The liver, spleen, adrenal glands, and pancreas are within normal limits. There is no evidence of free air or free fluid. There is some increased density in the mesenteric fat with prominent small subcentimeter nodes. 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 Pelvis: There are some diverticula in the descending and sigmoid colon particularly the latter. There is no evidence of acute diverticulitis. The urinary bladder is not particularly distended and there is no evidence of free fluid. The appendix is normal in appearance. There are degenerative disc changes at L4-5 and L5-S1. No acute bony abnormality is present. IMPRESSION: No evidence of acute intra-abdominal or pelvic disease. Nonacute findings as described above. Electronically signed by Ric Martinez 12/11/2019 2:19 PM
--- NOTE | 2019-12-11 14:45 | PROVIDER DOCUMENTATION ---
This chart was entered by Catherine Allen Scribe, acting as scribe for Shaun Poole MD. HPI-Neurological Disorder - General Chief Complaint: Stroke-Like Symptoms Stated Complaint: STROKE LIKE SYMPTOMS Time Seen by Provider: 12/11/19 11:03 Source: patient, family () Allergies/Adverse Reactions: Patient Allergies Allergy/AdvReac Type Severity Reaction Status Date / Time green beans Allergy Unknown SWELLING Uncoded 12/11/19 11:36 Home Medications: Home Medication List Medication Instructions Recorded Confirmed Last Taken Type Rosuvastatin Calcium [Crestor] 5 mg PO DIRECTED 11/09/13 12/11/19 12/10/19 History Aspirin EC 81 mg PO DAILY 07/24/14 12/11/19 12/11/19 History Chlorthalidone 1 tab PO DAILY 10/10/19 12/11/19 12/11/19 History Losartan [Cozaar] 100 mg PO DAILY 10/10/19 12/11/19 12/11/19 History Acetaminophen [Tylenol] 650 mg PO Q6H PRN PRN tab 10/12/19 12/11/19 12/11/19 Rx Clopidogrel [Plavix] 75 mg PO DAILY #30 tab 10/12/19 12/11/19 12/11/19 Rx Ciproflox/Dexameth Otic Susp 2 drp OT BID 12/11/19 12/11/19 12/11/19 History [Ciprodex Otic Suspension] Sildenafil [Viagra] 1 tab PO PRN PRN 12/11/19 12/11/19 Unknown History - History of Present Illness-Neuro Nature of Presenting Problem: 89 yowm presents to the ed with c/o LLE weakness acute onset this morong at 0830 while in the shower. pt sts it is difficulty to raise left leg but can be done. when leg is raised pt has his left foot drop. pt has no other sx and sts she has noted a decline in pt since sep 2019. pt recently had TIA and fell 2 days prior to today. pt has noted bruising to abdomen on exam. Severity: reports: moderate Onset/Duration: reports: this morning (0830) Timing: reports: still present, constant Context: reports: other (LLE weakness). denies: impaired speech, paresthesia, facial droop Character of Altered Mental Status: reports: N/A Any recent trauma/injury?: reports: none Character of Deficits: reports: new weakness, decreased ability to walk New weakness or altered sensation location:: reports: LLE Cognitive Baseline: alert, oriented x3 Gait Baseline: walks without assistance Associated Symptoms: reports: weakness (LLE). denies: headache, chest pain, fever/chills, nausea, numbness in legs/feet, vomiting Similar Symptoms Previously?: Yes (recent TIA) Recently seen or treated by another doctor?: Yes (seen in hosp sep 2019) Review of Systems - Adult - REVIEW OF SYSTEMS - ADULT Constitutional: denies: chills, fever Eyes: reports: no symptoms reported Ears, Nose, Mouth & Throat: reports: no symptoms reported Cardiovascular: denies: chest pain, palpitations Respiratory: denies: cough, shortness of breath, wheezing Gastrointestinal: denies: abdominal pain, diarrhea, nausea, vomiting Genitourinary: reports: no symptoms reported Musculoskeletal: reports: see HPI, other (LLE). denies: back pain, neck pain Integumentary: reports: no symptoms reported Neurological: denies: dizziness/vertigo, headache/migraines Psychiatric: reports: no symptoms reported Endocrine: reports: no symptoms reported Hematologic/Lymphatic: reports: no symptoms reported Allergic/Immunologic: reports: no symptoms reported All Other Systems: Reviewed and Negative Past History - Adult - PAST MEDICAL HISTORY-ADULT Review of Records: reports: Old Records Reviewed, Medications Reviewed, Social history reviewed & non-contributory. Major Childhood Illnesses: reports: denies history Cardiovascular: reports: CAD, HTN, hyperlipidemia Respiratory: reports: denies history Gastrointestinal: reports: denies history Genitourinary: reports: denies history Musculoskeletal: reports: denies history Hand Dominance: Right Handed Neurological: reports: TIA Psychiatric: reports: denies history Endocrine/Immune: reports: denies history Other Conditions: reports: other cancer (skin) - PRIOR SURGERIES/PROCEDURES Surgical/Procedure History: reports: hernia repair, joint replacement - IMMUNIZATION STATUS Childhood Immunizations: See Nurse Assessment Flu Vaccine: See Nurse Assessment - FAMILY HISTORY Family History: reviewed, not pertinent - SOCIAL HISTORY Smoking: denies Substance Use: denies Living Situation: family Physical Exam- Neurological - Physical Exam-Neuro Initial Vital Signs Reviewed: Yes General Appearance: appears well, alert, no apparent distress Eye Exam: bilateral eye: normal inspection, PERRL, EOMI HENMT: normocephalic/atraumatic, moist mucous membranes, normal ENT inspection Head Injury: no evidence of injury Neck: non-tender, full range of motion, supple, normal inspection Respiratory: chest non-tender, lungs clear, normal breath sounds Cardiovascular: normal peripheral pulses, regular rate, rhythm Abdominal Exam: normal bowel sounds, non tender, soft Lymphatic: no adenopathy Extremity: non-tender, normal inspection, normal capillary refill, pelvis stable , other (mild weakness noted to LLE and worse in foot. 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 negative: facial droop, facial paresthesias, facial weakness Motor/Sensory: weak motor strength LLE Integumentary: normal color, normal turgor, warm/dry, ecchymosis (noted to RUQ and midline abd) Psych/Mental Status: normal mood/affect, normal thought content, normal thought process, oriented x 3 - Glascow Coma Scale Best Eye Response: (4) open spontaneously Best Verbal Response: (5) oriented Best Motor Response: (6) obeys commands Total Glascow Score: 15 Progress - PLAN OF CARE/RESULTS Progress/Plan/Lab Results: Vital Signs - 8 hr 12/11/19 10:44 Temperature 97.5 F L Pulse Rate 70 Respiratory Rate 16 Blood Pressure 131/66 O2 Sat by Pulse Oximetry 100 Laboratory Results - last 24 hr 12/11/19 12/11/19 12/11/19 11:21 11:28 11:28 WBC 7.77 RBC 3.67 L Hgb 11.4 L Hct 32.6 L MCV 88.8 MCH 31.1 H MCHC 35.0 RDW Std Deviation 12.4 Plt Count 252 MPV 9.3 Neut % (Auto) 67.0 Lymph % (Auto) 16.6 L Powell % (Auto) 12.9 H Eos % (Auto) 3.2 Baso % (Auto) 0.3 Neut # (Auto) 5.21 Lymph # (Auto) 1.29 Powell # (Auto) 1.00 H Eos # (Auto) 0.25 Baso # (Auto) 0.02 PT INR PTT (Actin FS) Sodium 129 L Potassium 4.4 Chloride 94 L Carbon Dioxide 22 L Anion Gap 13 BUN 24 H Creatinine 1.0 Estimated GFR/1.73 m2 > 60 BUN/Creatinine Ratio 24 Glucose 87 POC Glucose 86 Calculated Osmolality 262 Calcium 9.2 Total Bilirubin 0.74 AST 23 ALT 22 Alkaline Phosphatase 83 Troponin T High Sens Total Protein 6.4 Albumin 3.7 Globulin 2.7 Albumin/Globulin Ratio 1.4 Urine Source Urine Color Urine Turbidity Urine pH Ur Specific Pompey Urine Protein Ur Glucose (Stick) Ur Ketones (Stick) Urine Blood Urine Nitrite Urine Bilirubin Urobilinogen Dipstick Urine Leukocytes Urine WBC (Auto) Urine RBC (Auto) U Epithel Cells (Auto) Urine Bacteria (Auto) Urine Crystals Small Round Cells Urine Casts Urine Yeast-like Cells Urine Opiates Screen Ur Oxycodone Screen Ur Methadone, Qual Ur Barbiturates Screen Ur Phencyclidine Scrn Ur Amphetamines Screen U Benzodiazepines Scrn Urine Cocaine Screen U Cannabinoids Screen 12/11/19 12/11/19 12/11/19 11:28 11:28 12:07 WBC RBC Hgb Hct MCV MCH MCHC RDW Std Deviation Plt Count MPV Neut % (Auto) Lymph % (Auto) Powell % (Auto) Eos % (Auto) Baso % (Auto) Neut # (Auto) Lymph # (Auto) Powell # (Auto) Eos # (Auto) Baso # (Auto) PT 13.9 INR 1.06 PTT (Actin FS) 29.9 Sodium Potassium Chloride Carbon Dioxide Anion Gap BUN Creatinine Estimated GFR/1.73 m2 BUN/Creatinine Ratio Glucose POC Glucose Calculated Osmolality Calcium Total Bilirubin AST ALT Alkaline Phosphatase Troponin T High Sens 15 Total Protein Albumin Globulin Albumin/Globulin Ratio Urine Source CATH Urine Color YELLOW Urine Turbidity CLEAR Urine pH 7.0 Ur Specific Pompey 1.017 Urine Protein NEGATIVE Ur Glucose (Stick) NEGATIVE Ur Ketones (Stick) NEGATIVE Urine Blood NEGATIVE Urine Nitrite NEGATIVE Urine Bilirubin NEGATIVE Urobilinogen Dipstick NORMAL Urine Leukocytes NEGATIVE Urine WBC (Auto) <10 Urine RBC (Auto) <10 U Epithel Cells (Auto) <10 Urine Bacteria (Auto) NEGATIVE Urine Crystals NONE SEEN Small Round Cells NONE SEEN Urine Casts NONE SEEN Urine Yeast-like Cells NONE SEEN Urine Opiates Screen Ur Oxycodone Screen Ur Methadone, Qual Ur Barbiturates Screen Ur Phencyclidine Scrn Ur Amphetamines Screen U Benzodiazepines Scrn Urine Cocaine Screen U Cannabinoids Screen 12/11/19 12:07 WBC RBC Hgb Hct MCV MCH MCHC RDW Std Deviation Plt Count MPV Neut % (Auto) Lymph % (Auto) Powell % (Auto) Eos % (Auto) Baso % (Auto) Neut # (Auto) Lymph # (Auto) Powell # (Auto) Eos # (Auto) Baso # (Auto) PT INR PTT (Actin FS) Sodium Potassium Chloride Carbon Dioxide Anion Gap BUN Creatinine Estimated GFR/1.73 m2 BUN/Creatinine Ratio Glucose POC Glucose Calculated Osmolality Calcium Total Bilirubin AST ALT Alkaline Phosphatase Troponin T High Sens Total Protein Albumin Globulin Albumin/Globulin Ratio Urine Source Urine Color Urine Turbidity Urine pH Ur Specific Pompey Urine Protein Ur Glucose (Stick) Ur Ketones (Stick) Urine Blood Urine Nitrite Urine Bilirubin Urobilinogen Dipstick Urine Leukocytes Urine WBC (Auto) Urine RBC (Auto) U Epithel Cells (Auto) Urine Bacteria (Auto) Urine Crystals Small Round Cells Urine Casts Urine Yeast-like Cells Urine Opiates Screen NONE DETECTED Ur Oxycodone Screen NONE DETECTED Ur Methadone, Qual NONE DETECTED Ur Barbiturates Screen NONE DETECTED Ur Phencyclidine Scrn NONE DETECTED Ur Amphetamines Screen NONE DETECTED U Benzodiazepines Scrn NONE DETECTED Urine Cocaine Screen NONE DETECTED U Cannabinoids Screen NONE DETECTED Orders Category Date Time Status Cardiac Monitoring DIRECTED Care 12/11/19 11:03 Active Finger Stick Blood Sugar (ED) DIRECTED Care 12/11/19 11:03 Active Oxygen Therapy- ED Nursing DIRECTED Care 12/11/19 11:03 Active Saline Loc NOW Care 12/11/19 11:03 Active CHEST-PORTABLE [RAD] Stat Exams 12/11/19 11:[address] ABD/PELVIS W/IV CONT ONLY [CT] Stat Exams 12/11/19 12:[address] HEAD W/O CONTRAST [CT] Stat Exams 12/11/19 10:49 Completed CBC WITH ELECTRONIC DIFF [HEME] Stat Lab 12/11/19 11:28 Completed COMPREHENSIVE METABOLIC PANEL [CHEM] Stat Lab 12/11/19 11:28 Completed PROTIME WITH INR [COAG] Stat Lab 12/11/19 11:28 Completed PTT [COAG] Stat Lab 12/11/19 11:28 Completed TROPONIN T HIGH SENSITIVITY Stat Lab 12/11/19 11:28 Completed URINALYSIS W/POSS RFLX CULT [URINALYSIS] Stat Lab 12/11/19 12:07 Completed URINE DRUG SCREEN Stat Lab 12/11/19 12:07 Completed URINE MANUAL MICROSCOPIC [URINALYSIS] Stat Lab 12/11/19 12:07 Completed 0.9% Sodium Chloride Inj [Ns] 1,000 ml Med 12/11/19 11:03 Active IV 125 mls/hr EKG [EKG] Stat Ther 12/11/19 11:03 Draft Result Diagrams: 12/11/19 11:28 12/11/19 11:28 - EKG 1 Time of EKG reading by physician:: 11:11 EKG Read and Signed by:: Shaun Poole EKG Interpretation (*Must complete 3 of following elements*): Abnormal Rate: 70 Rhythm: nsr [place]: normal QRS: RBB NM Interval: normal ST Wave: normal - XRAY 1 XRAY: Bilateral XRAY Study: Chest Impression: See EMR Report (EXAM: CHEST-PORTABLE HISTORY: stroke like symptoms TECHNIQUE: Single view COMPARISON: 12/05/2019 FINDINGS: The lungs are well expanded. The heart is not enlarged. The vessels are not distended. There a re no infiltrates. No effusion identified. There is scarring in the lower lungs. 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 Prominent degenerative changes in the thoracic spine. IMPRESSION: Stable chest Electronically signed by Mo Sanford 12/11/2019 11:16 AM 12/11/19 1116 Interpreting Physician: Mo Sanford MD Dictated Date/Time: 12/11/19 1115 cc: Shaun Poole MD; Curly Goodson MD) - CT/MRI 1 CT Study: Head Impression: See EMR Report (EXAM: CT HEAD W/O CONTRAST HISTORY: stroke like s/sx TECHNIQUE: CT head without contrast. COMPARISON: 10/10/2019 FINDINGS: No parenchymal hemorrhage. No epidural or subdural hematoma. No subarachnoid hemorrhage. There is moderate atrophy with chronic microvascular ischemic changes. No mass identified on this noncontrasted exam. No hydrocephalus. No sinus opacification. IMPRESSION: 1.No hemorrhage 2.Atrophy with chronic microvascular ischemic changes This exam was performed using automated exposure control, adjustment of mA or kV according to patient size, and/or use of iterative reconstruction technique. Electronically signed by Mo Sanford 12/11/2019 11:00 AM 12/11/19 1100 Interpreting Physician: Mo Sanford MD Dictated Date/Time: 12/11/19 1059 cc: Shaun Poole MD; Curly Goodson MD) - CONSULTS/PCP/HOSPITALIST Notification #1 *Consult/PCP/Hospitalist*: dr goodson pmd Time Discussed: 13:18 Consult Disposition: Admit Departure - Departure Date of Disposition Decision: 12/11/19 Time of Disposition Decision: 13:50 DIAGNOSIS: TIA (transient ischemic attack) Disposition: ADMITTED INPATIENT 09 Certified Medical Emergency: Emergent Condition: Fair Referrals and Follow-Ups: Curly Goodson MD [Primary Care Provider] - - Critical Care Note This patient required my direct & personal management of CC.: No Attestation - Physician/ SARMAD Attestation Patient care was provided by Advanced Practice Provider:: No The physician spent face to face time with patient:: Yes Advanced Practice Provider documentation review:: Supervising physician onsite and consulted in the evaluation and care of this patient. The physician did have a face to face encounter with the patient. - NIH Stroke Scale NIH Type: Initial Evaluation Level of Consciousness: 0-Alert LOC Questions (ask month and age): 0-Answers Both Correctly LOC Commands (ask to open & close eyes;make a fist, let go): 0-Obeys Both Correctly Best Gaze (horizontal eye movement): 0-Normal Visual (use finger movement, counting or visual threat): 0-No Visual Loss Facial Palsy (show teeth or raise eyebrows & close eyes tght: 0-Symmetrical Movement Motor Function-left arm: 0-Normal Motor Function-right arm: 0-Normal Motor Function-left le-Drift Motor Function-right le-Normal Limb Ataxia([id number], or heel to juarez): 0-No Ataxia Sensory(pin prick to face,arms,trunk,legs-compare side/side): 0-No Ataxia Best Language(name item/read sentence.Ex-Down to Earth): 0-No Aphasia Dysarthria(Pt read words or say words Ex.Mama,Tip-Top,Thanks: 0-Normal Articulat ion Extinction and Inattention: 0-Normal NIH Total Score: 1 This chart was documented by the indicated scribe, (Catherine Allen Scribe) and accurately reflects the services I performed and decisions made by me, Shaun Pooel MD, as attested by the provider's signature.
[2019-12-11] MEDS ORDERED: ZOFRAN IV PRN (16:30)
[2019-12-11] MEDS ORDERED: TYLENOL PO PRN ×2 (16:30→17:19)
--- NOTE | 2019-12-11 18:11 | HISTORY AND PHYSICAL ---
CHIEF COMPLAINT: Left leg clumsiness with possible numbness. HISTORY OF PRESENT ILLNESS: Mr. Leal is an 89-year-old gentleman with a history of previous cerebral infarcts. This morning while taking a shower, he noticed his left leg, particularly the ankle, being less cooperative and less coordinated and possibly slightly numb. Now, approximately 8-10 hours later, he feels it is nearly back to normal. His called the pharmacy and was told that the Levaquin he finished today might cause tendinopathies, but this does not seem to be the case. He called my office and was told to go to the emergency room for possible stroke evaluation. He was hospitalized in 2013 with transient left arm numbness and tingling. Again 2 months ago, he had similar left hand clumsiness and numbness, which also improved and later resolved. It should be noted that his right ankle and foot are abnormal, with ligamentous disruption that occurred 2-1/2 years ago, and he has seen 2 different foot surgeons, who both recommended he learn to live with it rather than have ligamentous repair. He walks with a walker or a quad cane to assist his balance at home. His previous MRI scans have documented, both in 2013 and 2 months ago, that he had 2 separate infarcts each time, raising the suspicion of cardiac emboli. During his last admission, he underwent both a transthoracic echocardiogram and a transesophageal echo, and no atrial clots or other suspicious findings were noted. 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 PAST MEDICAL HISTORY: He had a positive stress test approximately 30 years ago. He has not had previous known congestive heart failure or myocardial infarctions. 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 Roque. He uses CPAP nightly with no significant excessive daytime somnolence. FAMILY HISTORY: Negative for coronary disease or blood clots. SOCIAL HISTORY: He is and lives with his . Consumes occasional social alcohol. He has never used tobacco. He is up to date on vaccines. HOME MEDICATIONS: Aspirin 81 mg daily, clopidogrel 75 mg daily, chlorthalidone 25 mg daily, losartan 100 mg daily, rosuvastatin 2.5 mg at bedtime. ALLERGIES: No known drug allergies. He avoids eating green beans. REVIEW OF SYSTEMS: GENERAL: No headache, fever, chills, night sweats or weight loss. HEENT: Vision and hearing without recent change. No difficulty swallowing. RESPIRATORY: No cough, shortness of breath, or sputum production. Although he is getting over a recent upper respiratory infection, it has improved. CARDIOVASCULAR: No history of angina. No history of congestive heart failure or valvular heart disease. GI: Appetite has been good. He denies any nausea, vomiting, diarrhea or constipation. : Nocturia once or twice nightly with occasional hesitancy, but voids generally well. NEUROLOGIC: No history of seizures. PSYCHOLOGICAL: No history of mood or memory disorders. MUSCULOSKELETAL: As noted above. PHYSICAL EXAMINATION: VITAL SIGNS: Temperature 97.5, pulse 70, respirations 16, blood pressure 131/66. Room air oxygen saturation is 98%. GENERAL: Alert, pleasant, talkative, elderly gentleman in no acute distress. HEENT: Pupils equal, round, and reactive to light. Extraocular movements intact. Very small pterygiums are present on the medial surfaces of the corneas of both eyes. Oropharynx is benign. NECK: Supple with no adenopathy, JVD, thyromegaly or bruits. LUNGS: Clear to auscultation and percussion. CARDIAC: Regular rate and rhythm. Normal S1 and S2. No S3, S4, or murmurs. ABDOMEN: Soft and nontender with active bowel sounds. EXTREMITIES: Muscle mass is symmetric. Both Achilles tendons are nontender and appear intact. His right foot and ankle are asymmetric, and there is bony prominent in the instep which is abnormal. He is able to push down forcefully with his left forefoot. Gait is not tested. LABORATORY DATA: Normal white blood count. Hemoglobin 11.4, hematocrit 32.6, MCV 89, platelet count 252. INR is normal. Chemistry profile: Sodium 129, potassium 4.4, BUN 24, creatinine 1.0. Troponin is negative/normal. Urinalysis is unremarkable. IMAGING: Chest x-ray unremarkable. CT scan of the brain shows stable chronic ischemic sequelae. ASSESSMENT: 1. New onset of left leg and ankle clumsiness suspicious for recurrent cerebral ischemia or infarction. 2. Essential hypertension, well controlled. 3. History of atherosclerotic cardiovascular disease without angina pectoris, stable. 4. Obstructive sleep apnea, stable and treated. 5. Hypercholesterolemia, treated. TREATMENT PLAN: Will admit for observation and physical therapy evaluation. He has been going to balance physical therapy at [facility] and can resume this at discharge. cc: Curly Goodson MD
[2019-12-11] MEDS ORDERED: CRESTOR PO SCH (21:00)
[2019-12-12] MEDS ORDERED: ASPIRIN EC PO SCH (09:00)
[2019-12-12] MEDS ORDERED: HYGROTON PO SCH (09:00)
[2019-12-12] MEDS ORDERED: PLAVIX PO SCH (09:00)
[2019-12-12] MEDS ORDERED: COZAAR PO SCH (09:00)
[2019-12-12 15:10] VITALS: BP 100/68
--- NOTE | 2019-12-12 21:25 | NEUROLOGY CONSULTATION ---
DATE: 12/12/2019 SUBJECTIVE: Mr. Leal is 89 years old and he has history concerning for TIA. History from the patient is that he felt well yesterday morning. While standing in the shower, he had a sense that he could not use his left lower leg well. At one point, he thought there was a little bit of left footdrop. He used grab bars and a seat in the shower and did not fall. Within 20 minutes or so, he was improved. He presented to the hospital and was admitted. He believes that he eventually recovered completely to baseline. There was no associated left arm numbness or weakness, facial asymmetry, slurred speech, vision disturbance, headache, altered consciousness. This morning, he noted numbness and difficulty quickly extending and flexing the fingers on the left hand for several minutes. Later in the morning, he was sitting in the chair and noted a sense of weakness or numbness or both in the left leg. This was similar to but not identical and not as prominent as the symptoms yesterday. He reports having similar numbness or difficulty using his left hand lasting 10 or 20 minutes at a time about 3 or 4 episodes in the last year. None of these were associated with left leg symptoms, facial asymmetry, slurred speech, vision disturbance. Symptoms were somewhat similar to what he might experience after "sleeping on it" but not identical and were not associated with compression of the left arm. Otherwise, he has not had focal neurologic problem or clinical diagnosed stroke. Brain MRI has shown chronic ischemic change and atrophy and has shown small subcortical infarctions in the white matter bilaterally, most recently with restricted diffusion in the right parietal lobe on 10/10/2019 scan. On my view, the MRI shows diffuse atrophy, which appears to be more prominent in the right temporal and sylvian regions than on the left. Echocardiogram, transesophageal echocardiogram, carotid ultrasound done just a few months ago were unremarkable. HOME MEDICINES: Include losartan, rosuvastatin, chlorthalidone, aspirin, clopidogrel, and he reports taking all of these as directed without missing doses. PAST MEDICAL HISTORY: Hypertension, dyslipidemia. There is old right ankle and foot injury, which has interfered with his gait. He has been using a walker because of gait instability. PHYSICAL EXAMINATION: Neurological: On exam, he is awake, alert, attentive, oriented, appropriate. Speech is not dysarthric. Language function is intact. Memory is good. He discussed recent news with accurate detail. Head and neck are unremarkable. Visual carlton are full tested grossly by confrontational finger counting. Extraocular movements are full horizontally with slightly diminished upgaze typical for age. Facial motility is diminished bilaterally and symmetric. Gag is intact. Tongue is midline. Hearing is poor. Shoulder shrug is diminished bilaterally, a little bit more on the left consistent with the reported shoulder joint problems. He has good power testing in the arms and legs while seated on the bedside. He did well on yvvcbh-iq-qkrs and gnsf-et-cial testing bilaterally. He has some patches of diminished pinprick appreciation across the dorsum of the foot and lower leg on the left, inconsistent, but mostly lateral. There is not inconsistency on pinprick testing across the right foot and lower leg. Proprioception is good at the left great toe MTP joint. Reflexes are trace at the right ankle, 1+ at the left ankle, 1+ at the knees symmetrically. Plantar response is silent on the left, not tested on the right. Straight leg raising is negative bilaterally. His gait is wide-based and ataxic in addition to the prominent antalgic features attributed to the old right foot problem. He has difficulty standing with feet together with eyes open and with eyes closed. He reports good pinprick appreciation over the left hand. Proprioception is good at the left 3rd finger PIP joint. Left foot is warm. IMPRESSION: 1. Recent transient difficulty using the left leg. Explanation is not certain to me. This may have been upper motor neuron weakness, lower motor neuron weakness, clumsiness without weakness, degenerative joint problem or combination of problems. He has risk factors for cerebrovascular ischemic problems and I agree with Dr. Goodson's plans for workup. 2. Several episodes of symptoms in the left hand, which may be numbness, clumsiness, or both. This may be carpal tunnel syndrome or other peripheral nerve entrapment or could be transient central nervous system ischemia. 3. Unsteady gait with multiple factors including predominantly mechanical problems with the right lower leg. However, I believe there is some ataxia in addition to the chronic right ankle/foot trouble. RECOMMENDATIONS: 1. I do not have any urgent suggestions. We can consider repeating the brain MRI, possibly with contrast, for comparison with scan 2 months ago, but with complete resolution of his reported deficits in the last 2 days, MRI is not likely to be helpful now. Carotid ultrasound and echocardiogram were done 2 months ago and probably do not need to be repeated. 2. We might consider nerve conduction study on the left leg when practical, certainly not urgent, reasonable to plan as an outpatient electively. 3. I encouraged him to continue aggressive management of his risk factors and to keep followup with Dr. Goodson. He seems to be tolerating dual antiplatelet management and I would continue that. 4. Physical therapy might provide some benefit and I believe he has had that as an outpatient. Thanks for asking Neurology to see Mr. Leal. cc: MD Curly Arellano III, MD MTDD
== END 2019-12-12 18:32 | disposition home or self-care (01) | DRG 948 ==
LOC: ED 10:39 → EDIPHOLD 10:39 → OBSVTOIN 15:36 → 1N 22:18
PROVIDERS: ADMIT Internal Medicine; ATTEND Internal Medicine

== ENCOUNTER 2020-01-19 12:44 | Inpatient (IN) ==
--- NOTE | 2020-01-19 13:42 | Diag Imaging Result Doc PS360 ---
EXAM: CT HEAD W/O CONTRAST HISTORY: cva TECHNIQUE: CT head without contrast 12/11/2019 COMPARISON: None. FINDINGS: No parenchymal hemorrhage. No epidural or subdural hematoma. No subarachnoid hemorrhage. There is atrophy with chronic microvascular ischemic changes. No mass identified on this noncontrasted exam. No hydrocephalus. No sinus opacification. IMPRESSION: No change This exam was performed using automated exposure control, adjustment of mA or kV according to patient size, and/or use of iterative reconstruction technique. Electronically signed by Mo Sanford 01/19/2020 1:39 PM
[2020-01-19 14:01] LABS: BASO# 0.04 X1000 (0.0-0.2); BASO% 0.5 % (0.0-0.8); EOS# 0.23 X1000 (0.0-0.7); EOS% 2.8 % (0.0-10.0); HEMATOCRIT 35.2 % (42.0-52.0); HEMOGLOBIN 11.7 g/dL (14.0-18.0); LYMPH# 1.66 X1000 (1.2-3.4); LYMPH% 20.1 % (20.5-51.1); MCH 30.4 PG (27-31); MCHC 33.2 g/dL (33-37); MCV 91.4 FL (81-99); MONO# 1.23 X1000 (0.11-0.59); MONO% 14.9 % (1.7-9.3); MPV 9.8 FL (7.4-10.4); NEUT# 5.09 X1000 (1.4-6.5); NEUT% 61.7 % (42.2-75.2); PLT 223 X1000 (130-400); RBC 3.85 XMIL (4.7-6.1); RDW 12.8 % (11.5-14.5); WBC 8.25 X1000 (4.8-10.8)
[2020-01-19 14:11] LABS: INR 1.06
[2020-01-19 14:12] LABS: PTT 33.5 Seconds (22.3-41.8)
[2020-01-19] MEDS ORDERED: CIPRO PO ONE (14:14)
[2020-01-19 14:26] LABS: URINE SOURCE CLEAN CATCH
[2020-01-19 14:26] LABS: AGAP 12; BUN 17 mg/dL (8-22); CALCIUM 8.9 mg/dL (8.8-10.2); CHLORIDE 96 mmol/L (98-107); COSMO 265; CREATININE 0.8 mg/dL (0.7-1.2); ESTIMATED GFR > 60; GLUCOSE 87 mg/dL (70-104); POTASSIUM 4.1 mmol/L (3.5-5.1); SODIUM 132 mmol/L (136-145); TCO2 24 mmol/L (25-35)
[2020-01-19 14:27] LABS: BILIRUBIN URINE NEGATIVE (NEGATIVE); BLOOD URINE NEGATIVE (NEGATIVE); COLOR YELLOW; GLUCOSE URINE NEGATIVE (NEGATIVE); KETONE URINE NEGATIVE (NEGATIVE); LEUKOCYTES URINE NEGATIVE (NEGATIVE); NITRITE URINE NEGATIVE (NEGATIVE); PH URINE 7.5; PROTEIN URINE NEGATIVE (NEGATIVE); SP GRAVITY URINE 1.017; TURBIDITY URINE CLEAR (CLEAR); UROBILINOGEN URINE 2 mg/dL (NORMAL)
[2020-01-19 14:29] LABS: UR EPITHELIAL CELLS <10 /HPF (<10); URINE BACTERIA NEGATIVE /HPF; URINE RBC <10 /HPF (<10); URINE WBC <10 /HPF (<10)
--- NOTE | 2020-01-19 15:14 | PROVIDER DOCUMENTATION ---
This chart was entered by Crsisy Miranda Scribe, acting as scribe for Sam Bach MD. HPI-Neurological Disorder - General Chief Complaint: Stroke-Like Symptoms Stated Complaint: DR SENT HIM Time Seen by Provider: 01/19/20 12:57 Source: patient Allergies/Adverse Reactions: Patient Allergies Allergy/AdvReac Type Severity Reaction Status Date / Time green beans Allergy Unknown SWELLING Uncoded 12/11/19 11:36 Home Medications: Home Medication List Medication Instructions Recorded Confirmed Last Taken Type Aspirin EC 81 mg PO DAILY 07/24/14 12/11/19 12/11/19 History Chlorthalidone 1 tab PO DAILY 10/10/19 12/11/19 12/11/19 History Losartan [Cozaar] 100 mg PO DAILY 10/10/19 12/11/19 12/11/19 History Acetaminophen [Tylenol] 650 mg PO Q6H PRN PRN tab 10/12/19 12/11/19 12/11/19 Rx Clopidogrel [Plavix] 75 mg PO DAILY #30 tab 10/12/19 12/11/19 12/11/19 Rx Sildenafil [Viagra] 1 tab PO PRN PRN 12/11/19 12/11/19 Unknown History ROSUVAstatin [Crestor] 5 mg PO QHS tab 12/12/19 Unknown Rx - History of Present Illness-Neuro Nature of Presenting Problem: Pt is a 89 yowm sent to ED by his dr with c/o weakness on his left side that started this morning. Pt says his left hand will not do what he want its to do and that his left leg is weaker than normal. Pt says his knee may need to be replaced but he normally used a walker for mobility. Pt is alert and nontoxic in appearance. Severity: reports: mild Onset/Duration: reports: abrupt, this morning Timing: reports: still present Context: reports: other (left leg weakness when trying to walk and left arm weakness when trying to do things) Character of Altered Mental Status: reports: N/A Any recent trauma/injury?: reports: none Character of Deficits: reports: new weakness (left side) New weakness or altered sensation location:: reports: LUE, LLE, left facial Cognitive Baseline: alert, oriented x3 Gait Baseline: uses a walker Associated Symptoms: reports: decreased ability to walk or stand. denies: short of breath, weakness Similar Symptoms Previously?: No Recently seen or treated by another doctor?: Yes (ED 12/11/2019) Review of Systems - Adult - REVIEW OF SYSTEMS - ADULT Constitutional: denies: chills, fever Eyes: reports: no symptoms reported Ears, Nose, Mouth & Throat: reports: no symptoms reported Cardiovascular: denies: chest pain, syncope Respiratory: denies: cough, shortness of breath Gastrointestinal: denies: abdominal pain, diarrhea, vomiting Genitourinary: reports: no symptoms reported Musculoskeletal: reports: no symptoms reported Integumentary: reports: no symptoms reported Neurological: reports: other (left side weakness) Psychiatric: reports: no symptoms reported Endocrine: reports: no symptoms reported Hematologic/Lymphatic: reports: no symptoms reported Allergic/Immunologic: reports: no symptoms reported All Other Systems: Reviewed and Negative Past History - Adult - PAST MEDICAL HISTORY-ADULT Review of Records: reports: Nursing Assessment Review, Medications Reviewed, Social history reviewed & non-contributory. Major Childhood Illnesses: reports: denies history Cardiovascular: reports: CAD, HTN, hyperlipidemia Respiratory: reports: denies history Gastrointestinal: reports: denies history Genitourinary: reports: denies history Musculoskeletal: reports: denies history Neurological: reports: denies history Endocrine/Immune: reports: denies history Other Conditions: reports: other cancer (skin) - PRIOR SURGERIES/PROCEDURES Surgical/Procedure History: reports: hernia repair, joint replacement - IMMUNIZATION STATUS Childhood Immunizations: See Nurse Assessment Flu Vaccine: See Nurse Assessment - FAMILY HISTORY Family History: reviewed, not pertinent - SOCIAL HISTORY Smoking: non-smoker Substance Use: alcohol Alcohol Use Frequency: occasionally Living Situation: family () Physical Exam- Neurological - Physical Exam-Neuro Initial Vital Signs Reviewed: Yes General Appearance: appears well, alert, no apparent distress Eye Exam: bilateral eye: normal inspection, PERRL, EOMI HENMT: normocephalic/atraumatic, moist mucous membranes, normal ENT inspection Head Injury: no evidence of injury Neck: non-tender, full range of motion, supple Respiratory: chest non-tender, lungs clear, normal breath sounds, no respiratory distress Cardiovascular: normal peripheral pulses, regular rate, rhythm Abdominal Exam: normal bowel sounds, non tender, soft Lymphatic: no adenopathy 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 range 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, 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 Exam: normal speech, facial weakness (left side) Integumentary: normal color, normal turgor, warm/dry Psych/Mental Status: normal mood/affect, normal thought content, normal thought process, oriented x 3 - Glascow Coma Scale Best Eye Response: (4) open spontaneously Best Verbal Response: (5) oriented Best Motor Response: (6) obeys commands Progress - PLAN OF CARE/RESULTS Progress/Plan/Lab Results: Vital Signs - 8 hr 01/19/20 12:57 Temperature 98.0 F Pulse Rate 62 Respiratory Rate 16 Blood Pressure 155/68 O2 Sat by Pulse Oximetry 100 Laboratory Results - last 24 hr 01/19/20 01/19/20 01/19/20 13:42 13:42 13:42 WBC 8.25 RBC 3.85 L Hgb 11.7 L Hct 35.2 L MCV 91.4 MCH 30.4 MCHC 33.2 RDW Std Deviation 12.8 Plt Count 223 MPV 9.8 Immature Gran % (Auto) 0.0 Neut % (Auto) 61.7 Lymph % (Auto) 20.1 L Greenwood % (Auto) 14.9 H Eos % (Auto) 2.8 Baso % (Auto) 0.5 Immature Gran # (Auto) 0.00 Neut # (Auto) 5.09 Lymph # (Auto) 1.66 Greenwood # (Auto) 1.23 H Eos # (Auto) 0.23 Baso # (Auto) 0.04 PT 14.0 INR 1.06 PTT (Actin FS) 33.5 Sodium 132 L Potassium 4.1 Chloride 96 L Carbon Dioxide 24 L Anion Gap 12 BUN 17 Creatinine 0.8 Estimated GFR/1.73 m2 > 60 BUN/Creatinine Ratio 21 Glucose 87 Calculated Osmolality 265 Calcium 8.9 Urine Source Urine Color Urine Turbidity Urine pH Ur Specific Randolph Urine Protein Ur Glucose (Stick) Ur Ketones (Stick) Urine Blood Urine Nitrite Urine Bilirubin Urobilinogen Dipstick Urine Leukocytes Urine WBC (Auto) Urine RBC (Auto) U Epithel Cells (Auto) Urine Bacteria (Auto) 01/19/20 14:21 WBC RBC Hgb Hct MCV MCH MCHC RDW Std Deviation Plt Count MPV Immature Gran % (Auto) Neut % (Auto) Lymph % (Auto) Greenwood % (Auto) Eos % (Auto) Baso % (Auto) Immature Gran # (Auto) Neut # (Auto) Lymph # (Auto) Greenwood # (Auto) Eos # (Auto) Baso # (Auto) PT INR PTT (Actin FS) Sodium Potassium Chloride Carbon Dioxide Anion Gap BUN Creatinine Estimated GFR/1.73 m2 BUN/Creatinine Ratio Glucose Calculated Osmolality Calcium Urine Source CLEAN CATCH Urine Color YELLOW Urine Turbidity CLEAR Urine pH 7.5 Ur Specific Randolph 1.017 Urine Protein NEGATIVE Ur Glucose (Stick) NEGATIVE Ur Ketones (Stick) NEGATIVE Urine Blood NEGATIVE Urine Nitrite NEGATIVE Urine Bilirubin NEGATIVE Urobilinogen Dipstick 2 A Urine Leukocytes NEGATIVE Urine WBC (Auto) <10 Urine RBC (Auto) <10 U Epithel Cells (Auto) <10 Urine Bacteria (Auto) NEGATIVE Orders Category Date Time Status Saline Loc NOW Care 01/19/20 12:[address] HEAD W/O CONTRAST [CT] Stat Exams 01/19/20 12:58 Completed BASIC METABOLIC PANEL [CHEM] Stat Lab 01/19/20 13:42 Completed CBC WITH ELECTRONIC DIFF [HEME] Stat Lab 01/19/20 13:42 Completed PROTIME WITH INR [COAG] Stat Lab 01/19/20 13:42 Completed PTT [COAG] Stat Lab 01/19/20 13:42 Completed URINALYSIS W/POSS RFLX CULT [URINALYSIS] Stat Lab 01/19/20 14:21 Completed Ciprofloxacin [Cipro] Med 01/19/20 14:14 Discontinued 500 mg PO NOW ONE Transfer/Admit Order [TRANSFER] Routine Transfer 01/19/20 15:11 Ordered Result Diagrams: 01/19/20 13:42 01/19/20 13:42 - REASSESSMENT Reassessment #1 Time Reassessed: 15:05 Status: unchanged Reassessment Comment: at bedside discussing POC - CT/MRI 1 CT Study: Head Impression: See EMR Report (Department of Imaging Patient: MEGAN SALAZAR JrADM Date: 01/19/20MR#: [id number] : 1930DM Status: PRE ERAcct#: [id number] Age/Sex: 89/MRoom/Bed: Loc: ED Ordering Physician: Sam Bach MD Family Physician: Curly Goodson MD Reason for Procedure: cva ___ Signed EXAM: CT HEAD W/O CONTRAST HISTORY: cva TECHNIQUE: CT head without contrast 12/11/2019 COMPARISON: None. FINDINGS: No parenchymal hemorrhage. No epidural or subdural hematoma. No subarachnoid hemorrhage. There is atrophy with chronic microvascular ischemic changes. No mass identified on this noncontrasted exam. No hydrocephalus. No sinus opacification. IMPRESSION: No change This exam was performed using automated exposure control, adjustment of mA or kV according to patient size, and/or use of iterative reconstruction technique. Electronically signed by Mo Sanford 01/19/2020 1:39 PM 01/19/20 1339 Interpreting Physician: Mo Sanford MD Dictated Date/Time: 01/19/20 1337 cc: Sam Bach MD; Curly Goodson MD) - CONSULTS/PCP/HOSPITALIST Notification #1 *Consult/PCP/Hospitalist*: Dr. Gold Time Discussed: 12:39 Reason/Comments: advising pt coming to ED for stroke-like symptoms #2 Consult: Dr. Gold Time Discussed: 14:51 Reason/Comments: Discussing dx and POC #3 Consult: Dr Dutton Time Discussed: 15:11 Consult Disposition: Admit Departure - Departure Date of Disposition Decision: 01/19/20 Time of Disposition Decision: 15:12 DIAGNOSIS: TIA (transient ischemic attack) Disposition: ADMITTED INPATIENT 09 Certified Medical Emergency: Emergent Condition: Stable Referrals and Follow-Ups: Curly Goodson MD [Primary Care Provider] - - Critical Care Note This patient required my direct & personal management of CC.: Yes Total Time (mins): 30 Critical Care Statement: This patient required my direct personal management to treat or rule out processes, the absence of which, could potentiallly result in sudden, clinically significant life or limb threatening deterioration. Attestation - Physician/ SARMAD Attestation Patient care was provided by Advanced Practice Provider:: No The physician spent face to face time with patient:: Yes Advanced Practice Provider documentation review:: Supervising physician onsite and consulted in the evaluation and care of this patient. The physician did have a face to face encounter with the patient. - NIH Stroke Scale Level of Consciousness: 0-Alert LOC Questions (ask month and age): 0-Answers Both Correctly LOC Commands (ask to open & close eyes;make a fist, let go): 0-Obeys Both Correctly Best Gaze (horizontal eye movement): 0-Normal Visual (use finger movement, counting or visual threat): 0-No Visual Loss Facial Palsy (show teeth or raise eyebrows & close eyes tght: 1-Minor Paralysis Motor Function-left arm: 0-Normal Motor Function-right arm: 0-Normal Motor Function-left le-Normal Motor Function-right le-Normal Limb Ataxia(vodmwt-eoxp-hfweyj, or heel to juarez): 1-Present in one limb Sensory(pin prick to face,arms,trunk,legs-compare side/side): 0-No Ataxia Best Language(name item/read sentence.Ex-Down to Earth): 0-No Aphasia Dysarthria(Pt read words or say words Ex.Mama,Tip-Top,Thanks: 0-Normal Articulation Extinction and Inattention: 0-Normal NIH Total Score: 2 This chart was documented by the indicated scribe, (Crissy Miranda, Scribe) and accurately reflects the services I performed and decisions made by me, Sam Bach MD, as attested by the provider's signature.
[2020-01-19] MEDS ORDERED: TYLENOL PO PRN ×2 (15:44→18:11)
[2020-01-19] MEDS: NS 1,000 ML IV SCH (16:38)
--- NOTE | 2020-01-19 19:09 | HISTORY AND PHYSICAL ---
PRIMARY CARE PHYSICIAN: Dr. Curly Goodson. CHIEF COMPLAINT: Uncoordinated movement of the left upper extremity and left lower extremity. HISTORY OF PRESENT ILLNESS: An 89-year-old white male, with past medical history significant for hypertension and hyperlipidemia, presents for evaluation of above-mentioned symptoms. Pertinent history of present illness is quite interesting. The patient was admitted to the hospital in 2013 with transient left arm numbness and tingling. No definitive etiology was identified. In 2013, MRI at that time suggested 2 separate infarcts. The patient was treated nonmedically. No significant abnormalities were reported until the end of 2018. At that time, he again developed left upper and left lower extremity symptoms. MRI again suggested multiple infarcts, raising suspicion for embolic source. Transesophageal echocardiogram suggested no atrial clots or other suspicious findings. No evidence of arrhythmia was identified. Per report, the patient has had a monitor, but no abnormalities were noted. The patient states that he was in his usual state of health until yesterday. At that time he developed mild left upper extremity symptoms. He describes these as being clumsiness. Over the course of the day, symptoms slowly improved. Upon waking this morning, the patient noted more severe symptoms that he has had in the past. Once again, this was manifest with left hand and left upper extremity clumsiness/uncoordinated movements. Over the course of the morning, symptoms slowly progressed. The patient's became concerned that he was unable to ambulate secondary to left lower extremity symptoms. For this reason, the patient's contacted me and he was directed to the emergency department for further evaluation and management. Upon arrival, full evaluation was pursued. CT scan of the head revealed no significant changes from previous. Laboratory data returned largely unremarkable. The patient will be admitted to the hospital for full evaluation and management of a suspected stroke. Of note, the patient denies fevers, chills, nausea, vomiting, cough, congestion, chest pains or change in bowel movements. He has noted a mild increase in urinary frequency. He also notes occasional palpitations. PAST MEDICAL HISTORY: 1. Obstructive sleep apnea. 2. Hyperlipidemia. 3. Hypertension. 4. History of multiple strokes as described above. CURRENT MEDICATIONS: 1. Chlorthalidone 25 mg daily. 2. Losartan 100 mg daily. 3. Acetaminophen 650 mg every 6 hours as needed. 4. Aspirin 81 mg daily. 5. Clopidogrel 75 mg at bedtime. 6. Rosuvastatin 5 mg at bedtime. ALLERGIES: The patient answered no known drug allergies. He avoids eating green beans secondary to an allergic reaction in the past. SOCIAL HISTORY: The patient is and lives with his . He consumes occasional alcohol, but denies tobacco or illicit drug use. 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 FAMILY HISTORY: The patient's father passed in his 80s secondary to complications of "nephritis." The patient's mother passed in her 70s secondary to unknown causes. REVIEW OF SYSTEMS: A 12-point review of systems was performed. Pertinent positives and negatives are noted in history of present illness. PHYSICAL EXAMINATION: VITAL SIGNS: Temperature 98.3 degrees, heart rate 69, respirations 18, blood pressure 131/88. GENERAL: Elderly, no acute distress. HEENT: Normocephalic, atraumatic. Pupils equal, round and reactive to light. Extraocular muscles intact. Sclerae anicteric. Crown conjunctivae. Oral and nasopharynx clear, without exudate. NECK: Supple. No lymphadenopathy. No thyromegaly. No bruits auscultated. CARDIOVASCULAR: Regular rate and rhythm. No significant murmurs, rubs or gallops. PULMONARY: Clear to auscultation bilaterally. ABDOMEN: Soft, nontender, nondistended. Positive bowel sounds. EXTREMITIES: Moves all extremities well. No significant clubbing, cyanosis or edema. NEUROLOGIC: Cranial nerves 2-12 grossly intact. Right upper and lower extremity neurologic examination is within normal limits. Left upper extremity suggests uncoordinated movement with limited unnxlz-bf-nmnx, but excellent strength. Left lower extremity also suggests difficulty with yygp-gt-hjea, but good strength. PSYCHOLOGIC: Examination is appropriate. LABORATORY DATA: White blood cell count 8.25, hemoglobin 11.7, hematocrit 35.2, platelet count is 223,000. PT 14.0, INR is 1.06, PTT is 33.5. Sodium 132, potassium 4.1, chloride 96, bicarbonate 24, BUN 17, creatinine 0.8, glucose 87. Urinalysis reveals no evidence of infection. DIAGNOSTIC DATA: CT scan of the head suggested no change from previous. ASSESSMENT AND PLAN: An 89-year-old white male with past medical history as noted, presents for evaluation of left-sided neurologic deficits as described above. The patient has a history of multiple episodes of strokes in the past, all affecting the left side. Again, the patient's symptoms are consistent with a stroke. CT scan demonstrated no evidence of acute bleed. We will admit the patient to the hospital for full evaluation and management. 1. Admit to General Medicine. 2. Acute stroke: Clinically, symptoms are most consistent. We will continue aspirin and Plavix therapy. We will initiate aggressive but cautious hydration. We will allow the patient's blood pressure to run slightly elevated. The patient's recent evaluation has included carotid Doppler, Holter monitor, transthoracic echocardiogram, transesophageal echocardiogram, and event monitor. No definitive etiology has been identified to date. We will follow the patient on telemetry. We will consider repeat MRI on Tuesday. Depending on findings, we will consider transitioning to full anticoagulation, as he likely is an aspirin and Plavix failure. 3. Hypertension: The patient's losartan and chlorthalidone will be held. We will allow the patient's blood pressure to remain slightly elevated. We will follow this. 4. Hyperlipidemia: We will continue the patient's home rosuvastatin therapy. 5. Fluid, electrolytes, nutrition: We will monitor electrolytes. Normal saline at 75 mL/h. Cardiac-prudent diet. 6. Prophylaxis. The patient will be continued on aspirin and Plavix. We will consider starting low-dose Lovenox in the a.m. cc: Rajan Gold MD
[2020-01-19] MEDS: PLAVIX PO SCH (21:56)
[2020-01-19] MEDS: CRESTOR PO SCH (21:56)
[2020-01-20] MEDS ORDERED: ASPIRIN EC PO SCH (09:00)
[2020-01-20] MEDS: NS 1,000 ML IV SCH ×2 (09:16→23:48)
[2020-01-20] MEDS ORDERED: COLACE PO PRN (14:01)
--- NOTE | 2020-01-20 16:33 | PROGRESS NOTE ---
DATE: 01/20/2020 SUBJECTIVE: The patient was admitted yesterday with uncoordinated movement of his left upper extremity and left lower extremity. Symptoms were most consistent with an underlying stroke. A CT scan returned negative. The patient was started on IV fluids. Antihypertensive agents were held. Aspirin and Plavix were continued. Over the course of the first 24 hours, patient states that he has done reasonably well. He continues to have uncoordinated movement of his left upper extremity and left lower extremity. He denies fevers, chills, nausea, vomiting, shortness of breath, or chest discomfort. OBJECTIVE: T-max 98.1 degrees, heart rate 62 to 79, respirations 16 to 18, blood pressure 131- 150/62-88. General: Elderly. No acute distress. Cardiovascular: Regular rate and rhythm. No significant murmurs, rubs, or gallops. Pulmonary: Clear to auscultation bilaterally. Abdomen: Soft, nontender, nondistended. Positive bowel sounds. Extremities: No significant clubbing, cyanosis, or edema. Dermatologic: Evaluation reveals no evidence of rash. Neurologic: Examination reveals a slight facial droop on the left side. Skthij-em-ufox is intermittently abnormal on the left. Cacl-jz-wfwx continues to be abnormal on the left. Laboratory Data: None. ASSESSMENT AND PLAN: 1. Acute stroke-the patient has persistent symptoms despite aggressive hydration and less aggressive blood pressure control. As described on his previous note, he has had a full evaluation in the recent past including carotid Doppler, Holter monitor, transesophageal echocardiogram, transthoracic echocardiogram, and MRI. At this point, we will continue aspirin and Plavix. We will consult Dr. Hartman in the morning. MRI will be considered. Also of consideration is full anticoagulation as he has experienced aspirin and Plavix failure. We will defer this decision to Dr. Hartman. 2. Hypertension-patient's losartan and chlorthalidone have been held. We will continue to allow patient's blood pressure to remain slightly elevated in the setting of an acute stroke. 3. Hyperlipidemia-we will continue patient on rosuvastatin therapy. 4. Weakness-patient has underlying disease that is exacerbated by his acute stroke. We will initiate physical therapy. 5. Disposition-at this point, patient continues to require longterm care in the hospital setting. We will plan discharge home once appropriate. cc: Rajan Gold MD
[2020-01-20] MEDS: PLAVIX PO SCH (20:01)
[2020-01-20] MEDS: CRESTOR PO SCH (20:01)
[2020-01-20] MEDS: LOVENOX SUBQ SCH (20:02)
[2020-01-21 08:55] LABS: COLLAGEN/EPI PLT AGG > 300 Seconds (87-172)
[2020-01-21 08:56] LABS: COLLAGEN/ADP PLT AGG 132 Seconds (65-124)
[2020-01-21] MEDS: ASPIRIN PO SCH (09:52)
--- NOTE | 2020-01-21 19:37 | NEUROLOGY CONSULTATION ---
DATE: 01/21/2020 REASON FOR CONSULT: Stroke. HISTORY OF PRESENT ILLNESS: This is an 89-year-old, male with history of recurrent stroke, hypertension, hyperlipidemia, and obstructive sleep apnea. He came to the hospital on 01/19/2020 with symptoms concerning for stroke. History is from the patient and chart review. Apparently, he began to notice some symptoms of weakness or clumsiness or numbness in the left hand and arm that developed yesterday, but they slowly improved over the course of the day. He woke up the morning of presentation and had similar symptoms that were more severe. was also concerned that he was not ambulating as well as he usually does, and was concerned that his left lower extremity was also involved. The patient, however, says he disagrees with this and believes that he has been having some difficulty with his left leg, and mentions possibly needing a knee replacement. The patient was brought into the emergency department. Head CT did not show acute findings. He was admitted and since that time has had stable symptoms. Symptoms have not resolved. New symptoms have not developed. It looks like in 2013, the patient was admitted with transient right arm numbness and clumsiness and possible slurred speech. MRI at that time showed recent tiny lacunar infarcts in the parietal lobes. In September of last year. he was admitted with left hand clumsiness and possibly numbness. At that time. an MRI showed acute or subacute infarctions in both hemispheres, in the posterior right parietal cortex and subcortical white matter. In December of this year, he was admitted with left leg and ankle clumsiness, possibly numbness. MRI of the brain was not performed at that time. He was seen by Dr. Hartman at that time. There is report of a previous fall with intracranial bleed. All I could see in the chart are two head CTs in 2018 showing possible chronic subdural hematoma. PAST MEDICAL HISTORY: Includes: 1. Hypertension. 2. Hyperlipidemia. 3. History of multifocal ischemic strokes. 4. Obstructive sleep apnea. ALLERGIES: Listed to green beans. No known drug allergies. MEDICATIONS AT HOME: Include: 1. Aspirin 81 mg. 2. Plavix 75 mg. 3. Rosuvastatin 5 mg. 4. Tylenol. 5. Losartan. 6. Chlorthalidone. FAMILY HISTORY: No strokes. SOCIAL HISTORY: and lives with his . No tobacco or illicits. Occasional alcohol. He is retired from the [employer]. REVIEW OF SYSTEMS: Balance of 12 conducted and otherwise negative except that detailed in the HPI. PHYSICAL EXAMINATION: Vital Signs: Afebrile, blood pressure 155/68 on admission, now 122/57, pulse 60s, respirations 19, 98% on room air. Neurologic: Mr. Leal is sitting up in a chair, awake, alert, and oriented. Speech is fluent. No language disturbance on brief bedside testing. He follows simple commands consistently. Left/right digit distinction preserved. He seemed to have some trouble discussing both recent and remote events, or seemed to have trouble giving consistent history. Pupils are equal, miotic, reactive to bright light. Gaze is conjugate. Ocular movements are full, though with limited upgaze. He reports intact visual carlton to direct confrontational testing. Face appears symmetric with equal activation. Facial sensation reported intact. Tongue is midline. Palate elevates symmetrically. He may be a little hard of hearing. He has a difficult time holding the left arm up in an outstretched position. He also has a difficult time relaxing his extremities during the examination. The left arm did not easily fully extend at the elbow, but when he was told to focus on this, he eventually was able to do it briefly. His case worker seemed weaker in the left hand compared to the right. His long finger extensors and flexors were weak compared to the right. Strength there seemed to improve when he focused more on specific task. I could overcome both deltoids grading 4/5, slightly worse on the left. Biceps and triceps were intact and symmetric. He performed [id number]-il-[id number] more easily using the right hand compared to the left. Again, he seemed to not fully extend the arm at the elbow when he was not paying attention. He was accurate and not dysmetric. Again, he had a hard time relaxing his extremities during exam, but tone seemed a little higher in the left arm compared to the rest of the extremities. He performed heel to juarez easier using the right heel compared to the left heel. His strength in the legs appeared to be more symmetric, but he definitely used the right leg and with more fluid movement compared to the left leg. Dorsiflexor seemed a bit weak on the left, and I could not get much movement on the right ankle to test. Reflexes are trace at the ankles, 1+ at the knees and wrists bilaterally. Plantar responses are silent bilaterally. No clonus. He reported symmetric sensation to light touch over the limbs. I did not test his gait today. DIAGNOSTICS: MRIs from September 2019 and from 2013 were personally reviewed and as per above. Carotid Dopplers from 09/2019 show no hemodynamically significant flow-limiting stenosis. Head CT this admission is showing no change. He does have diffuse atrophy. He had a SENA in September 2019 that showed no intracardiac thrombus. There was also no indication of an interatrial shunt. The descending aorta showed mild plaque without any ulceration or debris. There was a cardiac event monitor from 2013 that showed PACs and PVCs. The patient reports he recently turned in another cardiac event monitor to the [facility], but I do not see any results in the chart. Labs reviewed in the chart. Normal BUN and creatinine. ASSESSMENT AND PLAN: 89-year-old male with multiple risk factors, presenting with left hand/arm weakness, numbness, or difficulty with control. It is possible there were also symptoms involving the left leg. Given his risk factors and prior ischemic events, there is concern for recurrent ischemic event, and that needs to be evaluated. We have ordered MRI and MRA of the head. I went ahead and made the former contrasted as well given the thoughts and recommendations from previous neurology consult. I have not seen vascular imaging of the brain and he needs this. Previous MRIs have shown very small bilateral infarcts which to me look to be mostly subcortical. I would cautiously monitor his blood pressure and avoid hypotension at this time. I would continue aspirin and Plavix therapy as he has tolerated this. Continue telemetry monitoring and if he has not just recently had an event monitor, then I would recommend that at discharge. Physical therapy, occupational therapy, and speech therapy. Thank you for the consultation. cc: MD Rajan Trujillo MD MTDD
[2020-01-21] MEDS: PLAVIX PO SCH (21:15)
[2020-01-21] MEDS: CRESTOR PO SCH (21:15)
[2020-01-21] MEDS: LOVENOX SUBQ SCH (21:15)
--- NOTE | 2020-01-22 09:29 | Diag Imaging Result Doc PS360 ---
EXAM: MRI BRAIN W/WO CONTRAST INDICATION: left arm weakness, difficulty controlling COMPARISON: 10/11/2019 FINDINGS: There is a small acute cortical infarct involving the posterosuperior aspect of the right frontal lobe near the cranial vault there are a few other miniscule foci of what appears to be restricted cortical diffusion near this in the right parietal lobe indicating tiny infarcts. There is T2/FLAIR hyperintensity associated with the focal restricted diffusion at the posterior right frontal lobe. Otherwise, there is extensive patchy T2/FLAIR hyperintensity in the periventricular and subcortical white matter bilaterally that is similar to the previous study indicating advanced white matter microangiopathy. There is a tiny subgaleal hematoma overlying the right parietal lobe that appears chronic. It is best seen on the FLAIR axial images and measures up to 6 mm in thickness. It cannot clearly be identified on a head CT dated 01/19/2020 due to its small size and chronicity. No intracranial mass is appreciated. No significant mass effect is appreciated. There is no hydrocephalus. There is no evidence of abnormal intracranial enhancement. The surrounding soft tissues and bony structures are essentially unremarkable. IMPRESSION: 1.Small focal acute cortical infarct involving the posterior aspect of the right frontal lobe and likely a few tiny adjacent acute cortical infarct in the right parietal lobe. 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 3.Suggestion of extensive white matter microangiopathy. Electronically signed by Jin Moses 01/22/2020 9:27 AM
--- NOTE | 2020-01-22 09:47 | Diag Imaging Result Doc PS360 ---
EXAM: MRA BRAIN W/O CONTRAST INDICATION: suspected intracranial stenosis TECHNIQUE: Thin section axial 3-D [id number]-[id number] images and 3-D MIPS were obtained. COMPARISON: None. FINDINGS: There is mild to moderate luminal narrowing of the right carotid siphon as compared to the left. No flow-limiting stenosis is appreciated involving the right or left MCAs. 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 The ACAs exhibit no flow-limiting stenosis. The distal vertebral arteries, basilar artery, and posterior cerebral arteries exhibit no flow-limiting stenosis. No cerebral aneurysm or vascular malformation is appreciated. IMPRESSION: Mild to moderate luminal narrowing of the right carotid siphon as compared to the left. No evidence of flow-limiting stenosis involving the intracranial vasculature, otherwise. Electronically signed by Jin Moses 01/22/2020 9:45 AM
[2020-01-22] MEDS: ASPIRIN PO SCH (09:48)
--- NOTE | 2020-01-22 10:50 | NEUROLOGY PROGRESS NOTE ---
DATE: 01/22/2020 Mr. Leal had another episode of left-sided weakness and presented to the hospital. Dr. Pablo saw him for a neurology consultation yesterday. He reports he is stable now with no new problems and he believes he has recovered to the point he could safely take care of himself at home. However, he also reports significant difficulty getting up to bedside commode earlier. Brain MRI today shows evidence of acute tiny right posterior frontal and right parietal infarctions which were not noted on prior scan. Brain MRA is unremarkable today. Systolic blood pressures have ranged 110s-160 over the last 24 hours. He has been afebrile since admission. Heart rate has been 60s-70s. On exam today, Mr. Leal is awake, alert, attentive, and appropriate. Speech is minimally dysarthric. Language function is intact. Visual carlton are full on gross confrontational testing. Extraocular movements are good. I could overcome the left arm, grading 4/5 at the deltoid. He did rapid alternating movements better with the right hand than the left. He did a little better with right [id number]-tf-[id number] than with the left. 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 I did not test his gait. IMPRESSION: Multiple transient neurologic events over the last few months, probably transient ischemic attack and small infarction with reversible ischemic neurologic deficit. There is MRI evidence today of new tiny acute infarctions in the right hemisphere, consistent with his left- sided deficit. In light of his age and negative workup to this point, I do not think there is anything we have to do urgently here. Dr. Pablo suggested considering cardiac event monitor after discharge. I would continue aggressive hydration, manage blood pressure conservatively, continue aspirin and clopidogrel together, continue rosuvastatin. Thanks for asking neurology to see Mr. Leal again. cc: MD Rajan Arellano III, MD MTDD
[2020-01-22 16:09] VITALS: BP 131/55
--- NOTE | 2020-01-22 16:51 | DISCHARGE SUMMARY ---
ADMISSION DATE: 01/19/2020 DISCHARGE DATE: 01/22/2020 FINAL DIAGNOSES: 1. Acute cerebral infarct, right frontal lobe. 2. 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 3. History of hypertension. 4. History of obstructive sleep apnea. 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 He was brought to the Emergency Room for further evaluation and management. CT scan in the Emergency Room showed no significant changes from previous. His laboratory was basically unremarkable. Physical examination revealed reduced coordination of his left arm and hand with limited finger-to- nose and also some [id number]-usmb on the left side with slight apraxia. HOSPITAL COURSE: He previously had TIAs in the same distribution affecting his left arm. He had an extensive evaluation this past September, 4 months ago, with a transesophageal echocardiogram and carotid Dopplers which were unremarkable. He has completed a recent 14 day event monitor which was also normal sinus rhythm without any atrial fibrillation. He was seen in consultation by Dr. Pablo from Neurology and felt to have a small stroke and a good prognosis. We debated full anticoagulation and because of his history of a subdural hematoma 2 years ago after a fall it was decided not to do this and to continue the aspirin and clopidogrel. He had a platelet aggregation test which was prolonged as expected, indicating adequate aspirin and clopidogrel effects. Arrangements were made for occupational therapy as an outpatient for left hand rehabilitation. He was instructed to avoid alcohol consumption until recheck. DISCHARGE MEDICATIONS: Aspirin 325 mg daily, clopidogrel 75 mg daily, losartan 50 mg daily, rosuvastatin 5 mg daily, and chlorthalidone 25 mg daily. FOLLOW UP: He is to return to my office in 8 to 14 days for transition of care visit. TIME SPENT: Time spent doing this discharge summary including phone calls to his and his son was 45 minutes. cc: MD Rajan Velazquez MD
== END 2020-01-22 17:43 | disposition home or self-care (01) | DRG 65 ==
LOC: ED 12:44 → EDIPHOLD 15:38 → 3N 17:18
PROVIDERS: ADMIT Internal Medicine; ATTEND Internal Medicine